=== PATIENT | female | born 1950 | race Caucasian/White ===

== ENCOUNTER → 2016-12-15 | Outpatient (CLI) | payer OTHER ==
--- NOTE | 2016-12-15 14:18 | US ---
EXAMINATION TYPE: US thyroid st tissue head/neck DATE OF EXAM: 12/15/2016 COMPARISON: NONE CLINICAL HISTORY: E04.1 Nontoxic single thyroid nodule. Lump pt felt 1 year GLAND SIZE: Right Lobe: 4.1 x 1.1 x 0.8 cm Overall Parenchyma: homogenous Left Lobe: 4.3 x 1.4 x 1.2 cm Overall Parenchyma: homogeneous Isthmus Thickness: 0.2 cm NODULES RIGH# of nodules measured on right: 1 1. 0.3 X 0.2 x 0.4 cm isoechoic mixed nodule at the upper pole with well-defined margins; . This n odule is wider than tall and shows intranodular vascularity. Prior size: no prior LEFT: # of nodules measured on left: 1 1. 2.5 X 1.3 x 0.8 cm isoechoic mixed nodule at the mid pole with well-defined margins. This nodul e is taller than wide and shows intranodular vascularity. Prior size: no prior ISTHMUS: # of nodules measured in the isthmus: 0 Bilateral neck scanned, no evidence of lymphadenopathy. submandibular area symmetrical Thyroid gland is normal in size and fairly homogeneous in echotexture. There is a dominant 2.5 cm violet ler greater than wide mixed solid and cystic nodule in left thyroid lobe. Towards end of the exam sca nning of bilateral submandibular region shows no suspicious solid or cystic mass. IMPRESSION: A dominant 2.5 cm mixed solid and cystic nodule is noted, consider ultrasound guided fine-needle aspi ration to rule out malignancy.
== END | disposition home or self-care (01) ==
LOC: RADUSWWP 13:41
PROVIDERS: ATTEND Family Medicine
DX: E04.1 Nontoxic single thyroid nodule (principal)
CPT/HCPCS: 76536

== ENCOUNTER 2017-01-16 11:46 | Day surgery (SDC) | payer OTHER ==
[2017-01-16 12:16] VITALS: BP 137/85; PULSE 76; RESP 20; TEMP 98.1
--- NOTE | 2017-01-16 14:29 | US ---
EXAMINATION TYPE: US FNA thyroid DATE OF EXAM: 01/16/2017 COMPARISON: Ultrasound 12/15/2016 HISTORY: Thyroid nodule, E04.1 Maximal barrier technique was utilized. Ultrasound using sterile technique. The skin overlying the no dule was localized with ultrasound and the overlying skin prepped and draped. Lidocaine used for loca l anesthesia. 5 passes with a 25-gauge needle were made into the nodule under ultrasound guidance. As pirate specimen submitted to cytology. Following the procedure hemostasis achieved. No immediate comp lication IMPRESSION: Status post ultrasound-guided fine-needle aspiration of thyroid nodule, pathology pending .
== END 2017-01-16 13:25 | disposition home or self-care (01) ==
LOC: RADPROMAIN 11:46
PROVIDERS: ATTEND Family Medicine
DX: E04.1 Nontoxic single thyroid nodule (principal)
CPT/HCPCS: 10022; 76942; 88173; 88305

== ENCOUNTER → 2017-08-15 | Outpatient (CLI) | payer MEDICARE ==
[2017-08-15 08:51] LABS: Blood Urea Nitrogen 19 mg/dL (7-17)
--- NOTE | 2017-08-15 10:08 | CT ---
EXAMINATION TYPE: CT soft tissue neck w con DATE OF EXAM: 08/15/2017 COMPARISON: NONE HISTORY: Lump under chin marked with BB on scan CT DLP: 245.5 mGycm CONTRAST: CT scan of the neck is performed with IV Contrast, patient injected with 100 mL of Omnipaque 300. Contrast enhanced CT of the neck was performed from the skull base through the lung apices. At the site of clinical concern underneath the chin to the left of midline is a lipoma measuring 2.7 x 2.5 x 1.4 cm. AIRWAY: The supraglottic, glottic, and subglottic portions of the airway appear patent and free of mass. SALIVARY GLANDS: The submandibular and parotid glands are free of mass or inflammatory process. THYROID GLAND: Complex cystic lesion left thyroid lobe measuring 1.2 x 0.64 cm. Consider ultrasound c orrelation. LYMPH NODES: No adenopathy seen greater than 1cm. LUNG APICES: Mild biapical scarring and mild emphysematous change. OTHER: Vascular structures are patent. No significant degenerative change of the cervical spine. N o abscess seen. IMPRESSION: 1. Lipoma at the site of clinical concern. 2. Complex cystic lesion left thyroid lobe. Consider ultrasound correlation.
== END | disposition home or self-care (01) ==
LOC: RADCTMAIN 08:07
PROVIDERS: ATTEND Family Medicine
DX: E04.1 Nontoxic single thyroid nodule (principal); M79.9 Soft tissue disorder, unspecified
CPT/HCPCS: 82565; 84520; 70491; 36415; Q9967

== ENCOUNTER 2017-09-03 21:33 | Emergency (ER) | payer MEDICARE ==
[2017-09-03 21:40] VITALS: BP 164/85; PULSE 85; RESP 18; TEMP 96.2
--- NOTE | 2017-09-03 22:23 | ED ---
General Adult HPI - General Chief complaint: Skin/Abscess/Foreign Body Stated complaint: FALL,FACIAL INJURIES Time Seen by Provider: 09/03/17 22:03 Source: patient Mode of arrival: ambulatory Limitations: no limitations - History of Present Illness Initial comments: 67-year-old female patient presents to the emergency department today for evaluation after falling and striking her face on the cement. Patient states she was assisting her mother out the car when her mother began to fall, states that her arms were linked and she was unable to put her hands out to break her fall. States that she does have a headache, multiple facial abrasions. States she did have epistaxis initially but that has resolved. She is reporting some mild neck pain. She denies any loss of consciousness, nausea, vomiting, dizziness, or weakness. She denies any blurred or double vision. She denies any back pain or other injuries. Patient denies any chest pain, shortness of breath, abdominal pain, or difficulties with bowel movements or urination. She is unsure when her last tetanus immunization was given. - Related Data Home Medications Medication Instructions Recorded Confirmed Aspirin 81 mg PO DAILY 08/24/14 01/16/17 Atorvastatin [Lipitor] 20 mg PO HS 08/24/14 01/16/17 Multivitamin/Iron/Folic Acid 1 each PO DAILY 08/24/14 01/16/17 [Centrum Complete Multivit Tab] Previous Rx's Medication Instructions Recorded Acetaminophen-Codeine 300-30mg 1 tab PO Q6H PRN #15 tablet 09/03/17 [Tylenol #3] Allergies Allergy/AdvReac Type Severity Reaction Status Date / Time Sulfa (Sulfonamide Allergy Rash/Hives Verified 09/03/17 21:40 Antibiotics) Review of Systems ROS Statement: Those systems with pertinent positive or pertinent negative responses have been documented in the HPI. ROS Other: All systems not noted in ROS Statement are negative. Past Medical History Past Medical History: Hyperlipidemia Additional Past Medical History / Comment(s): kidney stones History of Any Multi-Drug Resistant Organisms: None Reported Past Surgical History: Section Additional Past Surgical History / Comment(s): mesh sling Additional Past Anesthesia/Blood Transfusion Reaction / Comment(s): vomiting Past Psychological History: No Psychological Hx Reported Smoking Status: Former smoker Past Alcohol Use History: Rare Past Drug Use History: None Reported General Exam Limitations: no limitations General appearance: alert, in no apparent distress, other (Physical well- developed, well-nourished adult female patient in no acute distress. Vital signs upon presentation are temperature 96.2F, pulse 85, respirations 18, blood pressure 164/85, pulse ox 98% on room air.) Head exam: Present: other (Abrasions to her forehead) Eye exam: Present: normal appearance, PERRL, EOMI. Absent: scleral icterus, conjunctival injection, periorbital swelling, periorbital tenderness ENT exam: Present: normal exam, normal oropharynx, mucous membranes moist, other (There is nasal bridge tenderness, right maxillary tenderness. There is evidence of upper and lower lip injury, small lacerations. Dentition is intact with no loose or broken teeth.) Neck exam: Present: normal inspection, full ROM, other (Nontender, no step-off, no deformity to firm midline palpation of the posterior cervical spine. Full range of motion without pain or limitation.). Absent: tenderness, meningismus, lymphadenopathy Respiratory exam: Present: normal lung sounds bilaterally. Absent: respiratory distress, wheezes, rales, rhonchi, stridor Cardiovascular Exam: Present: regular rate, normal rhythm, normal heart sounds. Absent: systolic murmur, diastolic murmur, rubs, gallop, clicks GI/Abdominal exam: Present: soft, normal bowel sounds. Absent: distended, tenderness, guarding, rebound, rigid Extremities exam: Present: full ROM Back exam: Absent: vertebral tenderness Neurological exam: Present: alert, oriented X3, CN II-XII intact Psychiatric exam: Present: normal affect, normal mood Skin exam: Present: warm, dry, intact, normal color. Absent: rash Expanded 1 - 1. Right forehead superficial abrasion. 2. Right maxillary superficial abrasion. 3. 0.5 cm laceration to the nasal bridge with surrounding abrasion. 4. Abrasion noted to the right upper lip Course Vital Signs 09/03/17 21:36 Temperature 96.2 F L Pulse Rate 85 Respiratory 18 Rate Blood Pressure 164/85 O2 Sat by Pulse 98 Oximetry Medical Decision Making - Medical Decision Making 67-year-old female patient presented to the emergency department today for evaluation after experiencing a fall with facial injury. Physical examination did reveal multiple abrasions to the face and a 0.5 cm laceration to the nasal bridge. CT of the brain, C-spine, and facial bones was performed and showed a probable left nasal bone fracture. This is nondisplaced. There is no other acute abnormalities. Wound care was performed. I did discuss findings with the patient. Tetanus was updated. She'll be discharged home at, 3 for pain control. She is instructed to follow up with clinical researcher for further evaluation. Return parameters discussed in detail. She is instructed to follow-up with her primary care physician for recheck in 1-2 days per she is instructed to return here immediately for any new, worsening, or concerning symptoms. She verbalizes understanding and agrees with this plan. - Radiology Data Radiology results: report reviewed, image reviewed CT of the head and cervical spine are performed without contrast. Report was reviewed in its entirety. Impression by Dr. Langford shows negative computed tomography scan of the brain. Spondylosis at C5 to 6. No fracture. Pulmonary emphysema with bilateral apical pleural and pulmonary scarring. CT of the facial bones was performed without contrast. Report was reviewed in its entirety. Impression shows minimal left maxillary sinusitis. There is probably a left-sided nasal bone fracture. Disposition Clinical Impression: Facial abrasion, Nasal bone fracture, Head injury Disposition: HOME SELF-CARE Condition: Good Instructions: Nasal Fracture (ED), Head Injury (ED), Abrasion (ED) Additional Instructions: Take Tylenol and Motrin for pain control. Follow-up with ENT specialist for further evaluation of the nasal fracture. Keep wounds clean and dry. Return here immediately for any new, worsening, or concerning symptoms. Prescriptions: Acetaminophen-Codeine 300-30mg [Tylenol #3] 1 tab PO Q6H PRN #15 tablet PRN Reason: Pain Referrals: Paulo Pineda MD [Primary Care Provider] - 1-2 days Wicho Krishna MD [STAFF PHYSICIAN] - 1-2 days Time of Disposition: 22:54
--- NOTE | 2017-09-03 22:42 | CT ---
EXAMINATION TYPE: CT brain arya lew DATE OF EXAM: 09/03/2017 COMPARISON: NONE HISTORY: Fall. Headache. Neck pain. CT DLP: 1306.5 mGycm Automated exposure control for dose reduction was used. TECHNIQUE: CT scan of the head and cervical spine are performed without contrast. FINDINGS: Ventricles of normal size. There is no mass effect nor midline shift. There is no sign of intracranial hemorrhage. The calvarium is intact. The cervical vertebra have normal alignment. There is slight narrowing at C5-6 disc space. The other disc spaces are normal. Facet joints are intact. Skull base is intact. There is no evidence of a frac ture. There is some pleural thickening at the lung apices. IMPRESSION: Negative CT scan of the brain. Spondylosis at C5-6. No fracture. Pulmonary emphysema and bilateral apical pleural and pulmonary scarring.
--- NOTE | 2017-09-03 22:45 | CT ---
EXAMINATION TYPE: CT facial bones wo con DATE OF EXAM: 09/03/2017 COMPARISON: NONE HISTORY: Fall. CT DLP: 776.5 mGycm Automated exposure control for dose reduction was used. TECHNIQUE: CT scan of the sinuses is performed without contrast, axial images are obtained, coronal r eformatted images are also reviewed. FINDINGS: Orbital margins are intact. Maxilla is intact. There is fairly normal aeration of the paran leana sinuses. There is mild mucosal thickening at the left maxillary sinus. There is patency of the o stiomeatal complex. There is no evidence of blowout fracture. There appears to be nondisplaced fractu re of the left side of the nasal bone. Zygomatic arches appear normal. The mandibular ring appears in tact. Temporomandibular joints appear normal. There is no evidence of orbital mass. IMPRESSION: Minimal left maxillary sinusitis. There is probably a left-sided nasal bone fracture.
[2017-09-03] MEDS ORDERED: ACET/COD 300 MG/30 MG STARTER PACK 6 TAB BTL PO STA (22:57)
[2017-09-03] MEDS ORDERED: DIPH,PERTUS(ACELL)TETVAC-LF 0.5 ML VIAL IM ONE (23:12)
== END 2017-09-03 23:50 | disposition home or self-care (01) ==
LOC: EC 21:33
DX: S02.2XXA Fracture of nasal bones, initial encounter for closed fracture (principal); S01.511A Laceration without foreign body of lip, initial encounter; E78.5 Hyperlipidemia, unspecified; Z87.891 Personal history of nicotine dependence; Z79.82 Long term (current) use of aspirin; Z79.899 Other long term (current) drug therapy; Z88.2 Allergy status to sulfonamides; Z23 Encounter for immunization; W19.XXXA Unspecified fall, initial encounter; Y92.093 Driveway of other non-institutional residence as the place of occurrence of the external cause
CPT/HCPCS: 70450; 70486; 72125; 90471; 90715; 99283

== ENCOUNTER 2018-05-22 14:43 | Observation (INO) | payer MEDICARE ==
[2018-05-22 15:27] LABS: Basophils # (A) 0.1 k/uL (0-0.2); Basophils % (A) 1 %; Eosinophils # (A) 0.3 k/uL (0-0.7); Eosinophils % (A) 4 %; HCT 42.7 % (34.0-46.0); HGB 14.1 gm/dL (11.4-16.0); Lymphocytes # (A) 2.1 k/uL (1.0-4.8); Lymphocytes % (A) 25 %; MCH 28.2 pg (25.0-35.0); MCV 85.3 fL (80.0-100.0); Mean Platelet Volume 6.3; Monocytes # (A) 0.6 k/uL (0-1.0); Monocytes % (A) 8 %; Neutrophils % (A) 60 %; Platelet Count 370 k/uL (150-450); RDW 13.3 % (11.5-15.5); WBC 8.4 k/uL (3.8-10.6)
[2018-05-22 15:36] LABS: INR 0.9 (<1.2); Partial Thromboplastin Time 23.7 sec (22.0-30.0)
[2018-05-22 15:37] LABS: ALT 31 U/L (9-52); AST 21 U/L (14-36); Alkaline Phosphatase 66 U/L (38-126); Anion Gap 9 mmol/L; Blood Urea Nitrogen 16 mg/dL (7-17); Calcium 9.8 mg/dL (8.4-10.2); Carbon Dioxide 26 mmol/L (22-30); Chloride 106 mmol/L (98-107); Glucose 78 mg/dL (74-99); Magnesium 2.1 mg/dL (1.6-2.3); Potassium 4.2 mmol/L (3.5-5.1); Sodium 141 mmol/L (137-145); Total Bilirubin 0.3 mg/dL (0.2-1.3); Total Protein 6.9 g/dL (6.3-8.2)
[2018-05-22 15:38] LABS: Creatine Kinase 73 U/L (30-135)
--- NOTE | 2018-05-22 15:52 | XR ---
EXAMINATION TYPE: XR chest 2V DATE OF EXAM: 05/22/2018 COMPARISON: NONE TECHNIQUE: PA and lateral views submitted. HISTORY: Cough FINDINGS: Hyperinflation suggests COPD. Coarsened interstitium suggests chronic interstitial lung disease and t here is right perihilar infiltrate or possibly neoplasm. Biapical pleural thickening. Curvature the s pine with atherosclerotic changes aorta. Degenerative changes seen. Hyperinflation noted. IMPRESSION: 1. COPD with right perihilar pneumonia or neoplasm. Recommend follow-up CT scan chest.
[2018-05-22 15:53] LABS: Troponin I <0.012 ng/mL (0.000-0.034)
[2018-05-22] MEDS ORDERED: RX INFO: IV CONTRAST WAS GIVEN 1 EACH MISC MISCELLANE PRN (15:56)
--- NOTE | 2018-05-22 17:21 | ED ---
General Adult HPI - General Chief complaint: Chest Pain Stated complaint: Chest Pain Time Seen by Provider: 05/22/18 14:45 Source: patient, EMS, RN notes reviewed, old records reviewed Mode of arrival: EMS Limitations: no limitations - History of Present Illness Initial comments: 68-year-old female sent from primary care office for evaluation of possible EKG changes. Patient states she presented to the office with several month history of cough. Cough is dry nonproductive. No fever or chills. Patient denies any chest pain. Denies dyspnea. She has remote history of tobacco use but is not currently smoking. She has history of hypercholesterolemia, she is on statin and aspirin. No history of CAD. Patient denies bowel pain nausea vomiting. She does report recent unintentional weight loss. Patient has no other complaints other than mild cough. - Related Data Home Medications Medication Instructions Recorded Confirmed Aspirin 81 mg PO HS 08/24/14 05/22/18 Atorvastatin [Lipitor] 20 mg PO HS 08/24/14 05/22/18 Cholecalciferol [Vitamin D3] 1,000 unit PO DAILY 05/22/18 05/22/18 Collegen Plus C 1 tab PO DAILY 05/22/18 05/22/18 Lysine [l-Lysine] 500 mg PO DAILY 05/22/18 05/22/18 Vitamin B Complex 1 cap PO DAILY 05/22/18 05/22/18 Allergies Allergy/AdvReac Type Severity Reaction Status Date / Time Sulfa (Sulfonamide Allergy Rash/Hives Verified 05/22/18 15:17 Antibiotics) Review of Systems ROS Statement: Those systems with pertinent positive or pertinent negative responses have been documented in the HPI. ROS Other: All systems not noted in ROS Statement are negative. Past Medical History Past Medical History: Hyperlipidemia Additional Past Medical History / Comment(s): kidney stones History of Any Multi-Drug Resistant Organisms: None Reported Past Surgical History: Breast Surgery, Section, Tonsillectomy Additional Past Surgical History / Comment(s): mesh sling Additional Past Anesthesia/Blood Transfusion Reaction / Comment(s): vomiting Past Psychological History: No Psychological Hx Reported Smoking Status: Former smoker Past Alcohol Use History: Rare Past Drug Use History: None Reported General Exam Limitations: no limitations General appearance: alert, in no apparent distress Head exam: Present: atraumatic, normocephalic Eye exam: Present: normal appearance, PERRL ENT exam: Present: normal exam Neck exam: Present: normal inspection. Absent: tenderness, meningismus Respiratory exam: Present: normal lung sounds bilaterally. Absent: respiratory distress, wheezes Cardiovascular Exam: Present: regular rate, normal rhythm GI/Abdominal exam: Present: soft. Absent: distended, tenderness Extremities exam: Present: normal inspection, normal capillary refill. Absent: pedal edema Back exam: Present: normal inspection, full ROM. Absent: tenderness Neurological exam: Present: alert, oriented X3 Psychiatric exam: Present: normal affect, normal mood Skin exam: Present: warm, dry, intact. Absent: cyanosis, diaphoretic Course Vital Signs 05/22/18 05/22/18 05/22/18 14:53 15:00 15:30 Temperature 98.1 F Pulse Rate 80 78 80 Respiratory 17 17 18 Rate Blood Pressure 156/95 156/95 141/93 O2 Sat by Pulse 98 98 99 Oximetry 05/22/18 05/22/18 05/22/18 16:00 16:30 17:00 Temperature Pulse Rate 82 80 85 Respiratory 17 16 19 Rate Blood Pressure 122/79 124/87 112/75 O2 Sat by Pulse 98 97 100 Oximetry EKG Findings - EKG Comments: EKG Findings:: EKG: Normal sinus rhythm, rate of 77, ME interval 168, QRS duration 92, QTC 448, no ST segment elevation. Medical Decision Making - Medical Decision Making 68 yo female presenting for abnormal EKG. I do not see any acute EKG findings. Patient's complaint, for which she went to the primary care physician was chronic cough. Patient has normal CBC, normal CMP troponin and BNP are negative. Chest x-ray shows concern for perihilar pneumonia versus mass. CT is obtained, shows a right lower lobe mass with a second adjacent mass in the right lower lobe. Measuring 6 x 3 cm. These findings are discussed with the patient. Patient will be admitted for both pulmonology and oncology evaluation. - Lab Data Result diagrams: 05/22/18 15:05/22/18 15:09 Lab Results 05/22/18 05/22/18 05/22/18 Range/Units 15: 15: 15:09 WBC 8.4 (3.8-10.6) k/uL RBC 5.00 (3.80-5.40) m/uL Hgb 14.1 (11.4-16.0) gm/dL Hct 42.7 (34.0-46.0) % MCV 85.3 (80.0-100.0) fL MCH 28.2 (25.0-35.0) pg MCHC 33.0 (31.0-37.0) g/dL RDW 13.3 (11.5-15.5) % Plt Count 370 (150-450) k/uL Neutrophils % 60 % Lymphocytes % 25 % Monocytes % 8 % Eosinophils % 4 % Basophils % 1 % Neutrophils # 5.0 (1.3-7.7) k/uL Lymphocytes # 2.1 (1.0-4.8) k/uL Monocytes # 0.6 (0-1.0) k/uL Eosinophils # 0.3 (0-0.7) k/uL Basophils # 0.1 (0-0.2) k/uL PT (9.0-12.0) sec INR (<1.2) APTT (22.0-30.0) sec Sodium 141 (137-145) mmol/L Potassium 4.2 (3.5-5.1) mmol/L Chloride 106 (98-107) mmol/L Carbon Dioxide 26 (22-30) mmol/L Anion Gap 9 mmol/L BUN 16 (7-17) mg/dL Creatinine 0.61 (0.52-1.04) mg/dL Est GFR (CKD-EPI)AfAm >90 (>60 ml/min/1.73 sqM) Est GFR (CKD-EPI)NonAf >90 (>60 ml/min/1.73 sqM) Glucose 78 (74-99) mg/dL Calcium 9.8 (8.4-10.2) mg/dL Magnesium 2.1 (1.6-2.3) mg/dL Total Bilirubin 0.3 (0.2-1.3) mg/dL AST 21 (14-36) U/L ALT 31 (9-52) U/L Alkaline Phosphatase 66 (38-126) U/L Total Creatine Kinase 73 (30-135) U/L CK-MB (CK-2) 1.0 (0.0-2.4) ng/mL CK-MB (CK-2) Rel Index 1.4 Troponin I <0.012 (0.000-0.034) ng/mL NT-Pro-B Natriuret Pep pg/mL Total Protein 6.9 (6.3-8.2) g/dL Albumin 4.0 (3.5-5.0) g/dL 05/22/18 05/22/18 Range/Units 15:09 15:09 WBC (3.8-10.6) k/uL RBC (3.80-5.40) m/uL Hgb (11.4-16.0) gm/dL Hct (34.0-46.0) % MCV (80.0-100.0) fL MCH (25.0-35.0) pg MCHC (31.0-37.0) g/dL RDW (11.5-15.5) % Plt Count (150-450) k/uL Neutrophils % % Lymphocytes % % Monocytes % % Eosinophils % % Basophils % % Neutrophils # (1.3-7.7) k/uL Lymphocytes # (1.0-4.8) k/uL Monocytes # (0-1.0) k/uL Eosinophils # (0-0.7) k/uL Basophils # (0-0.2) k/uL PT 10.0 (9.0-12.0) sec INR 0.9 (<1.2) APTT 23.7 (22.0-30.0) sec Sodium (137-145) mmol/L Potassium (3.5-5.1) mmol/L Chloride (98-107) mmol/L Carbon Dioxide (22-30) mmol/L Anion Gap mmol/L BUN (7-17) mg/dL Creatinine (0.52-1.04) mg/dL Est GFR (CKD-EPI)AfAm (>60 ml/min/1.73 sqM) Est GFR (CKD-EPI)NonAf (>60 ml/min/1.73 sqM) Glucose (74-99) mg/dL Calcium (8.4-10.2) mg/dL Magnesium (1.6-2.3) mg/dL Total Bilirubin (0.2-1.3) mg/dL AST (14-36) U/L ALT (9-52) U/L Alkaline Phosphatase (38-126) U/L Total Creatine Kinase (30-135) U/L CK-MB (CK-2) (0.0-2.4) ng/mL CK-MB (CK-2) Rel Index Troponin I (0.000-0.034) ng/mL NT-Pro-B Natriuret Pep 54 pg/mL Total Protein (6.3-8.2) g/dL Albumin (3.5-5.0) g/dL Disposition Clinical Impression: Lung mass Disposition: ADMITTED IP TO THIS HOSP Condition: Stable Is patient prescribed a controlled substance at d/c from ED?: No Referrals: Paulo Pineda MD [Primary Care Provider] - 1-2 days Time of Disposition: 18:24
--- NOTE | 2018-05-22 17:58 | CT ---
EXAMINATION TYPE: CT chest w con DATE OF EXAM: 05/22/2018 COMPARISON: 09/03/2017 CT HISTORY: chest pain/cough/irregular heartbeat CT DLP: 135.8 mGycm Automated exposure control for dose reduction was used. CONTRAST: CT scan of the chest is performed with IV Contrast, patient injected with 92 mL of Isovue 3 00. FINDINGS: AIRWAYS: In the right lower lobe the airways show multifocal caliber narrowing. LUNGS: There is an ill-defined lobular RLL bronchogenic masslike soft tissue density lesion in the lo wermost posterior RLL, measuring approximately 6 cm craniocaudal by 4 cm AP by 3 cm transverse. There is a second ill-defined masslike bronchogenic RLL lesion measuring 5 cm diameter, with 50% cavitatio n, located immediately cephalad and anterior to the aforementioned masslike finding. MEDIASTINUM: There are no acute aortic or pulmonary arterial findings. Cardiac size is top normal, pe ricardial spaces negative. Prominent left and right coronary calcifications noted. There is confluent right hilar, subcarinal, and paratracheal moderate adenopathy. SKELETAL: No focal lesions. OTHER: The visualized subdiaphragmatic structures are unremarkable. The previously seen hypodense 12 x 6 mm lower left thyroid nodule is redemonstrated, with similar carol earance. IMPRESSION: 1) TWO LARGE RIGHT LOWER LOBE BRONCHOGENIC LESIONS, WITH ASSOCIATED PROMINENT RIGHT HILAR AND MEDIAST INAL ADENOPATHY. 2) CORONARY CALCIFICATIONS.
[2018-05-22] MEDS ORDERED: NALOXONE 0.4 MG/ML 1 ML VIAL IV PRN (18:19)
[2018-05-22] MEDS ORDERED: ACETAMINOPHEN TAB 325 MG TAB PO PRN (18:19)
[2018-05-22] MEDS ORDERED: ONDANSETRON 4 MG/2 ML VIAL IVP PRN (18:19)
[2018-05-23] MEDS: LORazepam 0.5 MG TAB PO PRN ×2 (00:22→21:16)
--- NOTE | 2018-05-23 09:43 | P.CONS ---
History of Present Illness - Reason for Consult Consult date: 05/23/18 Lung masses, adenopathy - History of Present Illness The patient is a 68-year-old white female, with overall well controlled medical problems. The patient states that she developed a cough which is mostly nonproductive, in late 03/22. She was treated with outpatient antibiotics with only transient improvement. She also started noting a pain just to the right of her lower sternum, that was exacerbated by the cough. This was associated with some difficulty in swallowing, and decrease in appetite. The patient states that she lost about 8 pounds since 03/22. Due to persistence, and progression of the symptoms, she came into the emergency room. Chest x-ray showed a right lung mass, leading to a computed tomography scan of the chest. This confirmed the presence of a 6 x 5 cm mass in the posterior right lower lobe, as well as a 5 cm mass which is partially necrotic, just anterior and cephalad to that. There also appeared to be prominent right hilar , right paratracheal and subcarinal adenopathy which seem to be somewhat confluent. She was therefore admitted for further evaluation, and consult placed. She denied any prior history of malignancy. She states that she used to smoke about 2 packs a day for 17 years but quit 33 years ago. She is not sure if she may have had some asbestos exposure in her 20s and 30s. She does get regular mammograms, and was due for her routine one this year. Review of Systems Constitutional: Reports weight loss Eyes: denies blurred vision, denies pain Ears: deny: decreased hearing, ear discharge, earache, tinnitus Ears, nose, mouth and throat: Denies headache, Denies sore throat Cardiovascular: Reports decreased exercise tolerance Respiratory: Reports cough Gastrointestinal: Reports as per HPI, Denies abdominal pain, Denies diarrhea, Denies nausea, Denies vomiting Genitourinary: Denies dysuria, Denies hematuria Menstruation: Reports postmenopausal Musculoskeletal: Denies myalgias Integumentary: Denies pruritus, Denies rash Neurological: Denies numbness, Denies weakness Psychiatric: Denies anxiety, Denies depression Endocrine: Reports weight change Hematologic/Lymphatic: Reports as per HPI Past Medical History Past Medical History: Hyperlipidemia, Osteoarthritis (OA), Pneumonia Additional Past Medical History / Comment(s): 2past kidney stones-passed them on own. occ constipation-last bm 05-22-18 , past fall-nasal fx,rt thumb fx- casted. "told years ago she had a prolapsed heart valve but never heard anything about it since", hiatal hernia,rt lower dental bridge."close to being boarderline dm" History of Any Multi-Drug Resistant Organisms: None Reported Past Surgical History: Bladder Surgery, Breast Surgery, Section, Tonsillectomy, Tubal Ligation Additional Past Surgical History / Comment(s): bladder sx-mesh sling, egd/ colonoscopy, thyroid bx-neg, breast augmentation, x2,cervical cerclage x2, fatty tumor removed lt thigh Past Anesthesia/Blood Transfusion Reactions: Postoperative Nausea & Vomiting ( PONV) Additional Past Anesthesia/Blood Transfusion Reaction / Comm: past blood transfusion-no known reaction Smoking Status: Former smoker - Past Family History Mother Family Medical History: Coronary Artery Disease (CAD), Myocardial Infarction (PR ) Additional Family Medical History / Comment(s): boarderline dm, cardaic stents Father Family Medical History: Coronary Artery Disease (CAD), Diabetes Mellitus, Myocardial Infarction (PR) Additional Family Medical History / Comment(s): cardiac stents Medications and Allergies Home Medications Medication Instructions Recorded Confirmed Type Aspirin 81 mg PO HS 08/24/14 05/22/18 History Atorvastatin [Lipitor] 20 mg PO HS 08/24/14 05/22/18 History Cholecalciferol [Vitamin D3] 1,000 unit PO DAILY 05/22/18 05/22/18 History Collegen Plus C 1 tab PO DAILY 05/22/18 05/22/18 History Lysine [l-Lysine] 500 mg PO DAILY 05/22/18 05/22/18 History Vitamin B Complex 1 cap PO DAILY 05/22/18 05/22/18 History Allergies Allergy/AdvReac Type Severity Reaction Status Date / Time Sulfa (Sulfonamide Allergy Rash/Hives Verified 05/22/18 15:17 Antibiotics) Physical Exam Vitals: Vital Signs Temp Pulse Pulse Pulse Resp BP BP 05/23/18 06:02 98 F 75 16 106/67 05/22/18 23:56 80 18 05/22/18 21:10 98 F 83 16 127/69 05/22/18 20:10 98.0 F 05/22/18 20:00 130/87 12/18/18 19:30 138/80 05/22/18 19:00 82 18 135/83 18 18:30 83 17 113/78 05/22/18 18:00 80 17 127/76 05/22/18 17:30 85 16 129/75 05/22/18 17:00 85 19 112/75 05/22/18 16:30 80 16 124/87 05/22/18 16:00 82 17 122/79 05/22/18 15:30 80 18 141/93 05/22/18 15:00 78 17 156/95 05/22/18 14:53 98.1 F 80 17 156/95 Pulse Ox 05/23/18 06:02 96 05/22/18 23:56 05/22/18 21:10 94 L 05/22/18 20:10 05/22/18 20:00 93 L 05/22/18 19:30 94 L 05/22/18 19:00 94 L 05/22/18 18:30 93 L 05/22/18 18:00 96 05/22/18 17:30 98 05/22/18 17:00 100 05/22/18 16:30 97 05/22/18 16:00 98 05/22/18 15:30 99 05/22/18 15:00 98 05/22/18 14:53 98 Intake and Output 05/22/18 05/23/18 05/23/18 22:59 06:59 14:59 Intake Total 160 Balance 160 Intake: Oral 160 Other: Voiding Method Toilet # Voids 2 Weight 42.093 kg - Constitutional General appearance: no acute distress - EENT Eyes: EOMI, PERRLA ENT: hearing grossly normal, normal oropharynx - Neck Neck: no lymphadenopathy Thyroid: bilateral: normal size - Respiratory Respiratory: bilateral: CTA - Cardiovascular Rhythm: regular Heart sounds: normal: S1, S2 - Gastrointestinal General gastrointestinal: normal bowel sounds, soft - Integumentary Integumentary: normal - Neurologic Neurologic: CNII-XII intact - Musculoskeletal Musculoskeletal: generalized weakness, strength equal bilaterally - Psychiatric Psychiatric: A&O x's 3, appropriate affect Results CBC & Chem 7: 05/22/18 15:09 05/22/18 15:09 Chest x-ray: report reviewed CT scan - chest: report reviewed Assessment and Plan (1) Lung mass Narrative/Plan: The imaging findings are highly suspicious for malignancy. The results of the CAT scan, and implications were discussed in detail with her. At this time a a lung primary seems most likely. Other etiologies are not ruled out. - The patient will need a tissue diagnosis. Pulmonary medicine has been consulted. We will defer to them as to whether bronchoscopy or CT-guided biopsy would be most appropriate. - MRI of the brain will be ordered for additional staging. - A computed tomography scan of the chest does not show any obvious metastatic disease in the other lung, or the upper abdomen. Therefore the plan would be to complete staging with a PET scan as an outpatient. Management of primary lung malignancy in general, according to her stage and type were discussed with the patient. She was advised that a definite plan can be formulated once tissue diagnosis and staging studies are finalized Current Visit: Yes Status: Acute Code(s): R91.8 - OTHER NONSPECIFIC ABNORMAL FINDING OF LUNG FIELD SNOMED Code(s): 458039256 Plan: Defer to the admitting service and other consultants for management of her other medical problems. Her baseline performance status is normal.
[2018-05-23 10:11] VITALS: BMI 17.5
[2018-05-23] MEDS ORDERED: NON-FORMULARY DRUG (Vitamin B Complex [Vitamin B Complex] 1 CAP) PO SCH (13:00)
[2018-05-23] MEDS: CHOLECALCIFEROL 1,000 UNIT TAB PO SCH (14:06)
--- NOTE | 2018-05-23 17:02 | MR ---
EXAMINATION TYPE: MR brain wo/w con DATE OF EXAM: 05/23/2018 COMPARISON: None HISTORY: Recent diagnosis lung ca, R/O mets TECHNIQUE: Multiplanar, multisequence images of the brain and brainstem is performed without and with IV contras t, utilizing 4.5 mL intravenous Gadavist . FINDINGS: On the FLAIR and T2 images there are scattered white matter high signal foci in both cerebral hemisph eres at the morrell-white matter junction. Total number is approximately 20. These measure up to 5 mm. T here is no mass effect nor midline shift. The ventricles of normal size. Brainstem is intact. Sella t urcica appears normal. Corpus callosum is intact. There is no evidence of a cortical infarct. I see n o pathologic enhancement. There is normal contrast opacification of the venous sinuses. IMPRESSION: Scattered subcortical white matter high signal foci likely related to chronic small vesse l ischemia. Otherwise negative exam. No evidence of metastatic disease.
[2018-05-23] MEDS: ENOXAPARIN 40 MG/0.4 ML SYRINGE SQ SCH (17:32)
[2018-05-23] MEDS: predniSONE 20 MG TAB PO SCH (17:32)
--- NOTE | 2018-05-23 17:48 | CONS ---
CONSULTATION REASON FOR CONSULTATION: This is a pulmonary critical care consultation for chest pain. HISTORY OF PRESENT ILLNESS: This is a very pleasant 68-year-old female who has a prior history of tobacco use, although he has not smoked for many years. She comes in because she was having chest pain. Her primary doctor was concerned and thought they saw some EKG changes and sent the patient to the emergency room for evaluation. Anyway, her EKG apparently was not abnormal and she was not having any cardiac disease, but rather she was found on chest x-ray and CT scan to have a mass in the chest. It is in the right lower lobe. In addition to the pain, she was having cough. The cough is mostly nonproductive. It does look that she likely has underlying lung cancer. It looks like the disease is endobronchial in nature that is likely why she is coughing. Again, not coughing up any phlegm or blood. The other thing that is important to noted is that her appetite has been poor and over the last 6 months she has lost about 20 pounds. She is a small woman to begin with. She does have a history of hyperlipidemia. She is on a statin for that. She has also recently given some aspirin because of the chest pain. She really does not take any other medication. She was told that she has possibly a borderline diabetes, but is not on any medication for that. She sees family doctor in [place]. As I mentioned, she did smoke heavily in the past, but has not smoked for many years. I got a look at the chest x-ray and a CT scan. I did tell her that it is likely she has lung cancer. We schedule her for bronchoscopy tomorrow. I am sure we are going to end up seeing endobronchial disease. PAST MEDICAL HISTORY: Is positive for kidney stones and hyperlipidemia. SURGICAL HISTORY: Includes breast surgery, , tonsillectomy. SOCIAL HISTORY: Positive for previous tobacco use. She drinks alcohol rarely. Family history is not noted. No illicit drug use. ALLERGIES: INCLUDE SULFA ANTIBIOTICS. HOME MEDICATIONS: Include aspirin, Lipitor, vitamin D3, collagen plus C, lysine and vitamin B complex. REVIEW OF SYSTEMS: CONSTITUTIONAL: Negative. NEUROLOGICAL: Negative. HEENT negative. CARDIOVASCULAR: Chest pain. PULMONARY: Nonproductive cough. GI/ negative. RHEUMATOLOGIC, HEMATOLOGIC, negative. ENDOCRINOLOGIC: Negative. DERMATOLOGIC: Negative. PHYSICAL EXAMINATION: Current vital signs are reviewed. Temperature is 98, heart rate 80, respiratory 16, blood pressure 106/67. Room-air saturation 96%. Appears in no acute distress. HEENT examination is grossly unremarkable. Mucous membranes are moist. No oral lesions. NECK: Supple. Full range of motion. No adenopathy or thyromegaly. Neck veins are flat. Cardiovascular examination reveals regular rhythm and rate. LUNGS: Some coarse rhonchi on the right. Breath sounds on the left are clear. No wheezes. No crackles. ABDOMEN: Soft. Bowel sounds are heard. Extremities are intact. No cyanosis, clubbing, or edema. Skin without rash. Neurologic examination is brief but nonfocal. LABS: Reviewed. CBC is completely normal. PT/INR and PTT all normal. Electrolytes and comprehensive metabolic profile all normal. The patient had an EKG that was normal. Chest x-ray shows either an infiltrate or mass in the right mid lung, right lower lobe area. CT scan was recommended. The CT scan done on May 22 shows 2 large right lower lobe bronchogenic lesions with associated prominent right hilar and mediastinal adenopathy. There is some coronary calcifications as well. This whole pattern is consistent with lung cancer given her cough or chest pain and her significant weight loss. ASSESSMENT: 1. Probable bronchogenic carcinoma. 2. History of hyperlipidemia. 3. Previous history of tobacco use. PLAN: The patient is scheduled for bronchoscopy, airway examination and biopsy. She likely has endobronchial disease. Additional recommendations and suggestions are forthcoming. Prognosis is guarded. I will see her in the outpatient setting after the procedure is done. She can certainly be discharged home. Oncology has been consulted. She will need an outpatient PET scan for staging as well as a CT scan of the brain. Additional recommendations and suggestions are forthcoming. MMODL / IJN: [id number] /
[2018-05-23] MEDS: IPRATROPIUM-ALBUTEROL 3 ML NEB INHALATION SCH ×2 (18:18→19:37)
--- NOTE | 2018-05-23 18:48 | HP ---
HISTORY AND PHYSICAL DATE OF ADMISSION: 05/22/2018 DATE OF SERVICE: 05/23/2018. PRESENTING COMPLAINT: Cough. HISTORY OF PRESENTING COMPLAINT: This is a very pleasant 68-year-old patient of Dr. Pineda. Chronic stable medical conditions include hyperlipidemia, osteoarthritis, kidney stones. The patient has since for at least 3 weeks has been having cough, has been to Dr. Pineda, was given steroids, Mucinex, not really with much more improvement. Decided to go back in again. They found some EKG changes and sent her down to rule out heart problems. The patient's appetite has been fair, but she has been losing weight. She used to weigh 105 pounds, down to 92 pounds. There is no hemoptysis. A chest x-ray in the ER did reveal possible lung masses. CT scan confirmed the same. The patient's daughter and other family members are present at the bedside. REVIEW OF SYSTEMS: CONSTITUTIONAL: Weight loss. HEENT none. RESPIRATORY as above including wheezing. CARDIOVASCULAR: None. GASTROINTESTINAL: None. GENITOURINARY: None. MUSCULOSKELETAL: Arthritic pain in joints. DERMATOLOGICAL, HEMATOLOGIC, LYMPHATIC: none. PSYCHIATRY none. NEUROLOGICAL none. PAST MEDICAL HISTORY: Hyperlipidemia, osteoarthritis, kidney stones. PAST SURGICAL HISTORY: Bladder surgery, breast surgery, , tonsillectomy, bladder surgery with mesh sling, thyroid biopsy negative, breast augmentation, , cervical cerclage, fatty tumor removed from left thigh. SOCIAL HISTORY: Patient's 13-year-old grandson lives with her. 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 Lives by herself. The patient smoked heavily for 15 years, stopped in 1985. FAMILY HISTORY: Coronary artery disease. HOME MEDICATIONS: 1. Vitamin B complex 1 capsule p.o. daily. 2. Lysine 500 mg p.o. daily. 3. Collagen plus C 1 tab p.o. daily. 4. Vitamin D3 1000 units p.o. daily. 5. Lipitor 20 mg q.h.s. 6. Aspirin 81 mg q.h.s. ALLERGIES: SULFA. PHYSICAL EXAMINATION: VITAL SIGNS: Vital signs on presentation, temperature 98.1, pulse 80, respiration 17, blood pressure 156/95, pulse ox 98% on room air. Repeat blood pressure 120/87. GENERAL APPEARANCE: Thin built, BMI 17.5, sitting up well groomed. EYES: Pupils equal. Conjunctivae normal. HEENT: External appearance of nose and ears normal. Oral cavity normal. NECK: JVD not raised. Mass not palpable. RESPIRATORY: Effort normal. LUNGS: Decreased breath sounds. Minimal wheezing. CARDIOVASCULAR: First and second sounds normal. No edema. ABDOMEN: Soft, nontender. Liver and spleen not palpable. LYMPHATICS: No lymph nodes palpable in the neck and axilla. PSYCHIATRY: Alert and oriented x3. Mood and affect is normal. NEUROLOGICAL: Pupils equal. Cranial nerves grossly intact. Power and sensation grossly intact. INVESTIGATIONS: White count 8.4, hemoglobin 14.1, potassium 4.2. Troponin negative. ProBNP 54. EKG tracing personally reviewed by me shows normal sinus rhythm. Checks x-ray film personally reviewed by me on the lateral view shows two shadows/lung masses. CT scan of the chest that showed 2 masses, 1 with possibly cavitating lesions with prominent lymph nodes. Brain MRI negative for masses. ASSESSMENT: 1. This is a patient who has been losing weight who is an ex-smoker presented with 2 lung lesions strongly suggestive of bronchogenic carcinoma along with adenopathy. 2. Chronic obstructive pulmonary disease in an ex-smoker. 3. Hyperlipidemia. 4. Primary osteoarthritis. PLAN: Patient is started on bronchodilators, oral steroids. Pulmonary was consulted. They will be doing a bronchoscopy with biopsy. Also preemptively oncology Dr. Tyler is consulted. Care was discussed with the patient and daughter at the bedside. I am hoping the patient will be able to be discharged tomorrow after her bronchoscopy and biopsy and then she can follow up with the results with the oncologist to determine further course of action. This was discussed with the patient and his daughter. Questions were answered. Copy to Dr. Pineda. MMHANNAHL / AZAMN: [id number] /
[2018-05-23] MEDS ORDERED: ASPIRIN 81 MG PO SCH (21:00)
[2018-05-23] MEDS ORDERED: ATORVASTATIN 20 MG TAB PO SCH (21:00)
[2018-05-24 05:13] VITALS: RESP 18
[2018-05-24] MEDS: IPRATROPIUM-ALBUTEROL 3 ML NEB INHALATION SCH ×3 (08:08→15:14)
[2018-05-24] MEDS: ENOXAPARIN 40 MG/0.4 ML SYRINGE SQ SCH (08:21)
[2018-05-24 12:21] VITALS: BP 116/56; TEMP 98.1
[2018-05-24] MEDS ORDERED: GLYCOPYRROLATE 0.2 MG/ML 2 ML VIAL ONE (13:04)
[2018-05-24] MEDS ORDERED: LIDOCAINE 1% INJ 10MG/ML (20 ML MDV) ONE (13:04)
[2018-05-24] MEDS ORDERED: MIDAZOLAM 2 MG/2 ML VIAL ONE (13:04)
[2018-05-24] MEDS ORDERED: PROPOFOL 10 MG/ML 20 ML VIAL IV ONE (13:04)
[2018-05-24] MEDS ORDERED: KETAMINE 10 MG/ML 20 ML VIAL ONE (13:04)
[2018-05-24] MEDS ORDERED: SODIUM CHLORIDE 0.9% 1,000 ML IV ONE (13:17)
--- NOTE | 2018-05-24 13:53 | P.PN ---
Subjective Progress Note Date: 05/24/18 Principal diagnosis: Right lung mass This is a very pleasant 68-year-old female patient with a history of kidney stones, hyperlipidemia, remote history of smoking. She presented here on 2017 with complaints of chest pain. She was seen by her PCP who thought she had EKG changes and she was evaluated in the emergency room. No acute coronary syndrome. Chest x-ray and CAT scan of the chest revealed a large right lower lobe lung mass. Suspicious for cancer. She was seen in consultation yesterday. The plan is for bronchoscopy with biopsies today. She is seen on the oncology unit. She is awake and alert in no acute distress. She is maintaining good O2 saturations in the mid 90s on room air. Worsening shortness of breath cough or congestion. No chest pain this morning. Objective - Vital Signs Vital signs: Vital Signs Temp 98.1 F 05/24/18 12:20 Pulse 106 H 05/24/18 12:20 Resp 18 05/24/18 05:00 BP 116/56 05/24/18 12:20 Pulse Ox 96 05/24/18 12:20 Intake & Output 05/23/18 05/24/18 05/24/18 18:59 06:59 18:59 Intake Total 360 240 200 Balance 360 240 200 Weight 42.093 kg Intake: IV 200 Oral 360 240 Other: Voiding Method Toilet Toilet # Voids 3 - Exam GENERAL EXAM: Alert, active, comfortable in no apparent distress. On room air. HEAD: Normocephalic. EYES: Normal reaction of pupils, equal size. NOSE: Clear with pink turbinates. THROAT: No erythema or exudates. NECK: No masses, no JVD. CHEST: No chest wall deformity. LUNGS: Equal air entry with no crackles, wheeze, rhonchi or dullness. CVS: S1 and S2 normal with no audible murmur, regular rhythm. ABDOMEN: No hepatosplenomegaly, normal bowel sounds, no guarding or rigidity. SPINE: No scoliosis or deformity SKIN: No rashes CENTRAL NERVOUS SYSTEM: No focal deficits, tone is normal in all 4 extremities. EXTREMITIES: There is no peripheral edema. No clubbing, no cyanosis. Peripheral pulses are intact. - Labs CBC & Chem 7: 05/22/18 15:09 05/22/18 15:09 Assessment and Plan Assessment: Pression: #1 Right lung mass suspicious for bronchogenic carcinoma. Bronchoscopy with biopsies performed today. #2 remote history of chronic tobacco dependence. #3 Hyperlipidemia. #4 History of nephrolithiasis. Plan: The patient was seen and evaluated by Dr. Ash. He did go ahead and perform a bronchoscopy with endobronchial biopsies, brushings and washings of the right lower lobe. If she is doing well within an hour or two she could be discharged home from our standpoint. She should follow-up in our office for results in 1- 2 weeks' time. She has already been seen by oncology. The plan will be for outpatient PET scan. MRI of the brain was negative for metastasis. I, the cosigning physician, performed a history & physical examination of the patient. Lungs sounds are clear. Maintaining good O2 saturations in the 90s on room air. I discussed the assessment and plan of care with my nurse practitioner, Mary Miles. I attest to the above note as dictated by her.
[2018-05-24 15:33] VITALS: PULSE 82
[2018-05-24] MEDS: CHOLECALCIFEROL 1,000 UNIT TAB PO SCH (15:35)
[2018-05-24] MEDS: predniSONE 20 MG TAB PO SCH (15:35)
[2018-05-24 17:30] LABS: Appearance,BF Bloody; Color,BF Red; Nucleated Cells, Body Fluid 300 /uL; RBC, Body Fluid 88700 /uL
[2018-05-24 17:33] LABS: Mononuclear WBC,Body Fluid 36 %; Polynuclear WBC,Body Fluid 62 %; Total Cells Counted,Body Fluid 100
--- NOTE | 2018-05-24 17:58 | P.PN ---
Subjective Progress Note Date: 05/24/18 Principal diagnosis: lung mass Bronchoscopy today Objective - Vital Signs Vital signs: Vital Signs Temp 98.1 F 05/24/18 12:20 Pulse 82 05/24/18 15:25 Resp 18 05/24/18 05:00 BP 116/56 05/24/18 12:20 Pulse Ox 96 05/24/18 12:20 Intake & Output 05/23/18 05/24/18 05/24/18 18:59 06:59 18:59 Intake Total 360 240 200 Balance 360 240 200 Weight 42.093 kg Intake: IV 200 Oral 360 240 Other: Voiding Method Toilet Toilet # Voids 3 2 - Exam - Constitutional General appearance: no acute distress - EENT Eyes: EOMI, PERRLA ENT: hearing grossly normal, normal oropharynx - Neck Neck: no lymphadenopathy Thyroid: bilateral: normal size - Respiratory Respiratory: bilateral: CTA - Cardiovascular Rhythm: regular Heart sounds: normal: S1, S2 - Gastrointestinal General gastrointestinal: normal bowel sounds, soft - Integumentary Integumentary: normal - Neurologic Neurologic: CNII-XII intact - Musculoskeletal Musculoskeletal: generalized weakness, strength equal bilaterally - Psychiatric Psychiatric: A&O x's 3, appropriate affect - Labs CBC & Chem 7: 05/22/18 15:09 05/22/18 15:09 Assessment and Plan Plan: Chest x-ray: report reviewed CT scan - chest: report reviewed Assessment and Plan (1) Lung mass - The imaging findings are highly suspicious for malignancy. - The results of the CAT scan, and implications were discussed in detail with her. At this time a a lung primary seems most likely. Other etiologies are not ruled out. - The patient status post Bronchoscopy today and will await tissue biopsy results for further recs. - Pulmonary medicine following - MRI of the brain completed and reviewed and no evidence of metastatic disease to brain - A computed tomography scan of the chest does not show any obvious metastatic disease in the other lung, or the upper abdomen. Therefore the plan would be to complete staging with a PET scan as an outpatient. Management of primary lung malignancy in general, according to her stage and type were discussed with the patient. She was advised that a definite plan can be formulated once tissue diagnosis and staging studies are finalized
--- NOTE | 2018-05-24 19:25 | PCN ---
PROCEDURE NOTE PROCEDURE PERFORMED: Bronchoscopy, endobronchial biopsies, brushes washes, BAL, therapeutic lavage, airway examination, most of the sampling or all sampling took place in the right lower lobe. PREOP DIAGNOSIS: Lung cancer. POSTOP DIAGNOSIS: Lung cancer. OPERATORS: Dr. Ash and Dr. Miles. ANESTHESIA: HEALTHCARE TECHNICIAN provided unconscious sedation general anesthesia. DESCRIPTION OF PROCEDURE: There was informed consent. There was universal timeout. The procedure took place in room #1. After the patient was adequately sedated and being fully monitored, the bronchoscope was inserted through the right nostril. It passed through the right nasopharynx into the oropharynx. The hypopharynx was identified and topicalized. The hypopharyngeal structures appeared normal. This including anterior commissure, true cords, false cords, arytenoids, piriform sinuses, right and left vallecula and epiglottis. After topicalization, bronchoscope was pushed through the glottic opening into the trachea. The trachea appeared normal. Trachea arpit was sharp. We next evaluated the left side. Left upper lobe proper and its 2 segments, the lingula and its 2 segments and the left lower lobe and its 4 segments were all normal. On the right side, the right upper lobe was trifurcated and normal. The bronchus intermedius started to appear abnormal as we took the bronchoscope down. It was clear to me that there was significant abnormalities particularly in the right lower lobe. It seemed to focus primarily on the medial segment of the right lower lobe and the segment going to the anterior lateral and posterior segments of the right lower lobe. The superior segment for all practical purposes appeared normal. Next, we focused on that area. We did brushes initially. That was done under direct visualization. Next, multiple endobronchial biopsies were performed in that area. Finally, washes were done in that area. The patient tolerated the procedure well. The bronchoscope was withdrawn and the patient will be recovered. I will talk to the family afterwards about the findings. MMODL / IJN: [id number] /
--- NOTE | 2018-05-30 11:51 | DS ---
DISCHARGE SUMMARY DATE OF ADMISSION: 05/22/2018 DATE OF DISCHARGE: 05/24/2018 FINAL DIAGNOSES: 1. Lung mass, adenopathy, asymptomatic. 2. Chronic obstructive pulmonary disease in an ex-smoker. 3. Primary osteoarthritis. HOSPITAL COURSE: This patient presented with shortness of breath, cough, not getting better. CT scan of the chest showed 2 large right lower lobe bronchogenic lesions with prominent hilar and mediastinal adenopathy. Patient did also have a brain MRI that did not show any evidence of metastatic disease. Patient did have a bronchoscopy with biopsy. The results of which were not available when patient was discharged. The results have just back now showing mixed endobronchial inflammation with atypical squamous metaplastic cells and pigmented histiocytes in the right lower lobe. The other two sites were negative. On examination,.temperature 98.1, pulse 106, blood pressure 106/56, pulse ox 96% on room air. LUNGS: Decreased breath sounds. Discussed the care with the family at the bedside. That results will be followed up by Dr. Ash and Dr. Tyler in the office. The results of above were not available when patient was discharged. Also discussed with Dr. Ash as steam pipe fitter of discharge. Discussion and discharge planning more than 35 minutes. DISCHARGE MEDICATIONS: 1. Aspirin 81 mg q.h.s. 2. Lipitor 20 mg q.h.s. 3. Vitamin D3 one thousand units p.o. daily. 4. Ventolin 1-2 puffs q.6 p.r.n. 5. Atrovent HFA 2 puffs q.i.d. 6. Prednisone taper. FOLLOWUP: Follow up with Dr. Tyler on 06/07/2018. Follow up with Dr. Ash in 1 week. Follow up with Dr. Khalif Pineda in [place] in one week. MMODL / IJN: [id number] /
== END 2018-05-24 17:15 | disposition home or self-care (01) ==
LOC: EC 14:43 → 3NMEDONC 18:19
PROVIDERS: ADMIT Hospitalist; ATTEND Hospitalist
DX: R91.8 Other nonspecific abnormal finding of lung field (principal); R05 Cough; R07.9 Chest pain, unspecified; R59.9 Enlarged lymph nodes, unspecified; R13.10 Dysphagia, unspecified; R63.4 Abnormal weight loss; E78.5 Hyperlipidemia, unspecified; R94.31 Abnormal electrocardiogram [ECG] [EKG]; M19.90 Unspecified osteoarthritis, unspecified site; Z87.442 Personal history of urinary calculi; Z87.891 Personal history of nicotine dependence; Z82.49 Family history of ischemic heart disease and other diseases of the circulatory system; Z88.2 Allergy status to sulfonamides; J44.9 Chronic obstructive pulmonary disease, unspecified; M19.91 Primary osteoarthritis, unspecified site; Z87.01 Personal history of pneumonia (recurrent); Z83.3 Family history of diabetes mellitus; Z79.82 Long term (current) use of aspirin; Z79.899 Other long term (current) drug therapy
CPT/HCPCS: 96372; 99285; 36415; 94640 ×3; 94760; 93005; 87798 ×3; 87496; 87498; 87529 ×2; 88104; 88108; 88305; 83880; 80053; 89050; 82550; 82553; 83735; 84484; 85025; 85610; 85730; 88342; 87252; 87502; 87634; 88341; 87070; 87205; 87116; 87102; 87206; 71046; 71260; 70553; 31625; 31623; 31624; G0378 ×3; J2250; J2001; J1650; J2704; J7512 ×2; A9585; Q9967

== ENCOUNTER → 2018-06-02 | Outpatient (CLI) | payer MEDICARE ==
--- NOTE | 2018-06-03 11:12 | PE ---
EXAMINATION TYPE: PET CT fusion skull to thigh DATE OF EXAM: 06/02/2018 COMPARISON: CT chest 05/22/2018 Prior PET/CT: None HISTORY: Lung cancer TECHNIQUE: Following the intravenous administration of 10.8 by mCi of F-18 FDG, whole body images ar e performed from the skull base to the midthigh. Images are reviewed on the computer in the coronal, axial, and sagittal planes. Reconstructed rotating images are created on independent workstation an d reviewed on the computer. A localization and attenuation correction CT is performed in conjunctio n with the PET scan. DLP: 148.62 mGycm SCAN: Initial Blood glucose: 92 mg/dL Average Mediastinum SUV: 1.2 Average Liver SUV: 1.54 FINDINGS: NECK: No abnormal uptake THORAX: There are multiple areas of abnormal uptake at the thoracic inlet, mediastinal and right lung foci of radiotracer accumulation: There is focal radiotracer accumulation within the left supraclavicular lymph node. PET image 51. SUV value 2.72. There is a right supraclavicular focus of radiotracer accumulation, PET image 53, SUV va lue of 3.19. There is an additional focus of radiotracer accumulation in the superior mediastinum adj acent to the trachea, PET image 56. SUV value 2.32. There is a focus of radiotracer accumulation at the aortopulmonic window suspicious for lymph node wi th an SUV value of 3.71. Pretracheal adenopathy has elevated SUV value of 4.74. Subcarinal lymph node SUV value of 4.83. Right peribronchial node SUV value 5.09. There is focal radiotracer accumulation along the pleural margin at the right costovertebral junction . PET image 82, SUV value 3.83. There is linear arranged nodularity extending from the right infrahilar region towards the posterior lateral pleural margin with multiple areas of focal radiotracer accumulation. This is well visualized on PET image 87 with SUV values in the range of 3.3, 2.6, and 2.54. This corresponds to the masslike area CT exam. There is a focus of radiotracer accumulation within the inferior aspect of the pulmonary mass on the right which has an SUV value of 3.67. This extends to the pleural margin. Along the inferior aspect t here is a focus of radiotracer accumulation for reference, image 109, SUV value of 3.4. ABDOMEN: Within the proximal abdomen in the prevertebral space, PET image 129, there is a focus of ra diotracer accumulation measuring 3.03. This may be a periaortic lymph node. PELVIS: No abnormal uptake. OSSEOUS STRUCTURES: No definite abnormal uptake within the osseous structures. LOCALIZATION CT: Supraclavicular adenopathy is not as well-visualized on the localization CT. Without contrast, there appears poor visualization of the mediastinal adenopathy. The soft tissue mass diste nding into the right lower lobe is well visualized. There appears to be some cavitation within the flynn perior segment right lower lobe portion of the mass. Adjacent within the soft tissues at this level i s located near areas of focal radiotracer accumulation on the PET portion of the study. Abnormality a djacent to the abdominal aorta to account for the abdominal findings is not clearly evident on this s tudy. Lymph node is suspected. COMPARISON: Right lower lobe lung mass extending to the right infrahilar region appears stable over t he short interval comparison CT study. IMPRESSION: 1. Abnormal increased uptake within the right infrahilar extension into the right lower lobe mass com patible with neoplasm. 2. Multiple focal areas of radiotracer accumulation within the mediastinum and bilateral supraclavicu lar regions discussed above suspicious for a metastatic disease. 3. There is a focal radiotracer accumulation anterior to vertebral body which appears to lie medial t o the aorta. This area is suspicious for solitary metastasis below the diaphragm. The suspected lymph node is not well delineated on the current examination.
== END | disposition home or self-care (01) ==
LOC: RADPETMAIN 14:05
PROVIDERS: ATTEND Internal Medicine Critical Care Medicine
DX: C34.31 Malignant neoplasm of lower lobe, right bronchus or lung (principal); R91.8 Other nonspecific abnormal finding of lung field
CPT/HCPCS: 78815; A9552

== ENCOUNTER 2018-06-15 08:28 | Day surgery (SDC) | payer MEDICARE ==
[2018-06-12 15:26] VITALS: BMI 17.2
[~2018-06-15 08:28] MED LIST: ATROPINE SULFATE 0.4 MG/ML 1 ML VIAL IM ONE; DEXAMETHASONE SOD PHOSPHATE 10 MG/ML 1 ML VIAL IV ONE; LACTATED RINGERS 1,000 ML IV SCH; LIDOCAINE 1% 20 ML VIAL (10MG/ML) FOR IV START INTRADERMA PRN; LIDOCAINE VISCOUS 2% 15 ML CUP MUCOUS MEM ONE; MIDAZOLAM (PF) 2 MG/2 ML VIAL IV PRN; SODIUM CHLORIDE 0.9% 1,000 ML IV ONE; fentaNYL (PF) 50 MCG/ML 2 ML AMP IV PRN
[2018-06-15 08:47] VITALS: TEMP 97
[2018-06-15] MEDS ORDERED: DEXAMETHASONE SOD PHOSPHATE 10 MG/ML 1 ML VIAL IV ONE (08:56)
[2018-06-15] MEDS ORDERED: ONDANSETRON 4 MG/2 ML VIAL IVP ONE (08:56)
[2018-06-15] MEDS ORDERED: SCOPOLAMINE 1.5MG/72HR PATCH TRANSDERM ONE (08:56)
[2018-06-15] MEDS ORDERED: LIDOCAINE HCL/PF 20 MG/ML ML INHALATION ONE ×2 (09:00→20:00)
[2018-06-15] MEDS ORDERED: LIDOCAINE 2% (PF) 20 MG/ML 10 ML AMP INHALATION ONE (09:15)
--- NOTE | 2018-06-15 11:05 | CT ---
EXAMINATION TYPE: CT Chest wo louann [facility] Protocol DATE OF EXAM: 06/15/2018 COMPARISON: PET scan 06/02/2018 HISTORY: BRONCHIAL NAVAGATION CT DLP: 587 mGycm Automated exposure control for dose reduction was used. FINDINGS: Exam performed as part of a bronchial navigation Limited exam. Atherosclerotic change aorta and previ ous bilateral breast surgery noted. There are emphysematous change of the lungs with pleural effusion on the right with pleural nodularit y. There is an ill-defined lobular RLL bronchogenic masslike soft tissue density lesion in the lowerm ost posterior RLL, measuring approximately 6 cm craniocaudal by 4 cm AP by 3 cm transverse. There is a second ill-defined masslike bronchogenic RLL lesion measuring 5 cm diameter, with 50% cavitation, l ocated immediately cephalad and anterior to the aforementioned masslike finding. Due to technique and lack of contrast assessment of the mediastinum for adenopathy is markedly limite d. Coronary artery calcification noted. Suspect there is confluent adenopathy in the right hilum, sub carinal and paratracheal region. The previously seen hypodense 12 x 6 mm lower left thyroid nodule is redemonstrated, with similar carol earance. Hypertrophic and degenerative change of the vertebral column. Area of sclerosis involving th e upper lumbar segment did not appear to be positive by recent PET scan and therefore likely is benig n but could be followed on a short-term basis given its small size for confirmation. Splenic granulom a and noted and there is atherosclerotic change of the aorta. Suspect bilateral adrenal mass is great er on the left measuring 2.1 cm. IMPRESSION: 1) TWO LARGE RIGHT LOWER LOBE BRONCHOGENIC LESIONS, WITH ASSOCIATED PROMINENT RIGHT HILAR AND MEDIAST INAL ADENOPATHY. 2) CORONARY CALCIFICATIONS. 3. SUSPECT BILATERAL ADRENAL MASSES GREATER ON THE LEFT METASTASES IN THE DIFFERENTIAL DIAGNOSIS.
[2018-06-15] MEDS ORDERED: fentaNYL (PF) 50 MCG/ML 2 ML AMP ONE (11:11)
[2018-06-15] MEDS ORDERED: MIDAZOLAM 2 MG/2 ML VIAL ONE (11:11)
[2018-06-15] MEDS ORDERED: ROCURONIUM BROMIDE 10 MG/ML 10 ML VIAL IV ONE (11:11)
[2018-06-15] MEDS ORDERED: LIDOCAINE 1% INJ 10MG/ML (20 ML MDV) ONE (11:11)
[2018-06-15] MEDS ORDERED: NEOSTIGMINE 1 MG/ML 10 ML VIAL ONE (11:11)
[2018-06-15] MEDS ORDERED: PROPOFOL 10 MG/ML 20 ML VIAL IV ONE (11:11)
[2018-06-15] MEDS ORDERED: GLYCOPYRROLATE 0.2 MG/ML 2 ML VIAL ONE (11:11)
[2018-06-15] MEDS ORDERED: IV FLUID CONTINUATION 1,000 ML IV ONE (12:04)
--- NOTE | 2018-06-15 12:32 | PCN ---
PROCEDURE NOTE This is navigational bronchoscopy. PREOPERATIVE DIAGNOSIS: Right lower lobe mass. POSTOPERATIVE DIAGNOSIS: Rule out cancer. PROCEDURE: The patient's procedure was done in room #1 in the operating room. Brian Davis CRNA provided unconscious sedation, general anesthesia along with Dr. Nye. The operators were Dr. Ash, Dr. Miles, and Krys Joe. The procedure was navigational bronchoscopy. There was universal timeout. There was informed consent. After the patient was adequately sedated and anesthetized, the bronchoscope was pushed through the bronchoscope adapter connected to the endotracheal tube. We use the navigational system to identify the lesion in the right lower lobe. Initially we did needle biopsies of lesion. We had pathology standing by. On the second pass, Dr. oS was able to tell us that there was cancer cells present, likely a non-small cell lung cancer, and he thought maybe squamous cell. He wanted us to get another pass, a third pass for the block. We did that. In addition, we brushed the area and washed the area. There was no immediate complication. There was no significant bleeding. The patient was stable throughout the procedure. The patient will be recovered. I will speak to the patient's daughter after the procedure. No additional recommendations were made. The patient tolerated the procedure well. MMODL / IJN: [id number] /
--- NOTE | 2018-06-15 12:42 | XR ---
EXAMINATION TYPE: XR chest 1V DATE OF EXAM: 06/15/2018 COMPARISON: 05/22/2018 HISTORY: Status post bronchoscopy TECHNIQUE: Single frontal view of the chest is obtained. FINDINGS: There are increasing bibasilar opacities status post navigational bronchoscopy. Portions o f the right lower lobe opacity may relate to postbiopsy hemorrhage. Opacities obscuring the known rig ht lower lobe probable neoplasm. Remainder the lungs are well aerated. Cardia mediastinal silhouette is mildly enlarged. Osseous structures are grossly intact. No postprocedural pneumothorax. IMPRESSION: Bibasilar opacities likely relate to component of atelectasis, right lower lobe pulmonar y masses, postbiopsy hemorrhage, and overlying soft tissues.
[2018-06-15 13:26] VITALS: BP 116/74; PULSE 90; RESP 16
[2018-06-15 17:11] LABS: Appearance,BF Hazy; Color,BF Red; Nucleated Cells, Body Fluid 20 /uL; RBC, Body Fluid 1640 /uL
[2018-06-15 17:14] LABS: Mononuclear WBC,Body Fluid 29 %; Polynuclear WBC,Body Fluid 70 %; Total Cells Counted,Body Fluid 100
== END 2018-06-15 13:43 | disposition home or self-care (01) ==
LOC: ORWHC2ENDO 08:28
PROVIDERS: ATTEND Internal Medicine Critical Care Medicine
DX: C34.31 Malignant neoplasm of lower lobe, right bronchus or lung (principal); R91.8 Other nonspecific abnormal finding of lung field; E78.5 Hyperlipidemia, unspecified; N20.0 Calculus of kidney; M19.90 Unspecified osteoarthritis, unspecified site; Z79.82 Long term (current) use of aspirin; Z79.899 Other long term (current) drug therapy; Z88.2 Allergy status to sulfonamides; Z87.891 Personal history of nicotine dependence; Z98.51 Tubal ligation status
CPT/HCPCS: 94640; 87798 ×3; 87496; 87498; 87529 ×2; 88104; 88108; 88305; 88173; 89050; 88342; 87252; 87502; 87634; 88341; 87070; 87205; 87116; 87102; 87206; 71045; 71250; 31629; 31623; 31627; J2250; J0461; J1100; J2710; J2001 ×2; J2405; J3010; J2704; 31624

== ENCOUNTER → 2018-06-18 | Outpatient (CLI) | payer MEDICARE ==
--- NOTE | 2018-06-18 20:40 | ECHOF ---
Referral Reason:Shortness of Breath R06.02 MEASUREMENTS -------- HEIGHT: 152.4 cm WEIGHT: 40.4 kg BP: RVIDd: 1.9 cm (< 3.3) IVSd: 0.9 cm (0.6 - 1.1) LVIDd: 3.3 cm (3.9 - 5.3) LVPWd: 0.9 cm (0.6 - 1.1) IVSs: 1.1 cm LVIDs: 2.5 cm LVPWs: 1.0 cm Ao Diam: 3.0 cm (2.0 - 3.7) AV Cusp: 1.4 cm (1.5 - 2.6) LA Diam: 2.1 cm (2.7 - 3.8) MV EXCURSION: 18.330 mm (> 18.000) MV EF SLOPE: 108 mm/s (70 - 150) MV E Brian: 0.80 m/s MV DecT: 324 ms MV A Brian: 0.85 m/s MV E/A Ratio: 0.95 RAP: 5.00 mmHg RVSP: 19.89 mmHg FINDINGS -------- Sinus rhythm. This was a technically good study. Pt. Has Breast inplants The left ventricular size is normal. Left ventricular wall thickness is normal. Overall left vent ricular systolic function is normal with, an EF between 55 - 60 %. The right ventricle is normal in size and function. Normal LA size by volume 22+/-6 ml/m2. The right atrium is normal in size. Aortic valve is trileaflet and is mildly thickened. There is no evidence of aortic regurgitation. There is no evidence of aortic stenosis. The mitral valve leaflets are mildly thickened. There is trace to mild mitral regurgitation. Mild tricuspid regurgitation present. Right ventricular systolic pressure is normal at < 35 mmHg. There is no evidence of pulmonary hypertension. Trace/mild (physiologic) pulmonic regurgitation. The aortic root size is normal. Normal inferior vena cava with normal inspiratory collapse consistent with estimated right atrial pre ssure of 5 mmHg. There is a small pericardial effusion is located near the right atrium. CONCLUSIONS -------- 1. Sinus rhythm. 2. This was a technically good study. 3. Pt. Has Breast inplants 4. The left ventricular size is normal. 5. Left ventricular wall thickness is normal. 6. Normal LA size by volume 22+/-6 ml/m2. 7. Aortic valve is trileaflet and is mildly thickened. 8. The mitral valve leaflets are mildly thickened. 9. There is trace to mild mitral regurgitation. 10. Mild tricuspid regurgitation present. 11. Right ventricular systolic pressure is normal at < 35 mmHg. 12. There is no evidence of pulmonary hypertension. 13. Trace/mild (physiologic) pulmonic regurgitation. 14. The aortic root size is normal. 15. There is a small pericardial effusion is located near the right atrium. CONCRETE TILE MACHINE OPERATOR: Azael Ko RDCS
== END ==
LOC: RADECHMAIN 16:11
PROVIDERS: ATTEND Internal Medicine Hematology & Oncology
DX: I08.1 Rheumatic disorders of both mitral and tricuspid valves (principal); Z98.82 Breast implant status
CPT/HCPCS: 93306

== ENCOUNTER → 2018-07-30 | Outpatient (CLI) | payer MEDICARE ==
[2018-07-30 14:01] VITALS: BMI 17.4
== END | disposition home or self-care (01) ==
LOC: LABWHC1 12:25
PROVIDERS: ATTEND Internal Medicine Hematology & Oncology
DX: R63.0 Anorexia (principal); R63.4 Abnormal weight loss
CPT/HCPCS: 97802

== ENCOUNTER → 2018-09-15 | Outpatient (CLI) | payer MEDICARE ==
--- NOTE | 2018-09-17 07:46 | PE ---
EXAMINATION TYPE: PET CT fusion skull to thigh DATE OF EXAM: 09/15/2018 COMPARISON: PET/CT June 02, 2018. CT chest June 15, 2018. HISTORY: Right-sided lung cancer completed chemotherapy July 18, 2018. TECHNIQUE: Following the intravenous administration of 12.33 mCi of F-18 FDG, whole body images are performed from the skull base to the midthigh. Images are reviewed on the computer in the coronal, a xial, and sagittal planes. Reconstructed rotating images are created on independent workstation and reviewed on the computer. A noncontrast CT is performed in conjunction with the PET scan. SCAN: Subsequent Scan FINDINGS: SKULL BASE AND NECK: No new areas of abnormal hypermetabolic uptake. CHEST, MEDIASTINUM, AND HILAR REGION: Background mild to moderate underlying emphysematous change red emonstrated. There is moderate size right pleural effusion increased in size from prior exams. Previo usly visualized hypermetabolic consolidation centrally right lower lobe extending posteriorly inferio rly to pleural surface and centrally and to the right hilum is markedly improved on current study as no suspicious hypermetabolic uptake remains present with some masslike consolidation air bronchograms best appreciated axial image 90 still seen. No definitive hypermetabolic or enlarged thoracic lymph nodes on current study. Focus of hypermetabol ic uptake medial right posterior pleural surface is not clearly seen on current study at subcarinal l evel. No new areas of abnormal hypermetabolic uptake are present. ABDOMEN AND PELVIS: No new areas of abnormal hypermetabolic uptake. Previously visualized hypermetabo lic focus periaortic region upper abdomen centrally on prior study is not clearly seen. Diffuse uptak e throughout the bowel and bladder is seen. OSSEOUS STRUCTURES: No new areas of abnormal hypermetabolic uptake. OTHER CT: Mild calcified plaque carotid bulb level, left greater than right is redemonstrated. Bilateral breast implants are again seen. There is moderate three-vessel coronary artery calcificatio n which is noted marker for underlying coronary artery disease. Multiple calcifications throughout the spleen are consistent with product of old granulomatous diseas e. Patient has very little intra-abdominal fat making evaluation suboptimal. Moderate calcified plaqu e of the abdominal aorta extends into pelvic branch vessels. Gallbladder has distended margins. There is facet arthropathy in the lower lumbar spine. IMPRESSION: Marked positive treatment response without suspicious residual suspicious hypermetabolic uptake seen on current study. Enlarging now moderate size right pleural effusion is however noted.
== END | disposition home or self-care (01) ==
LOC: RADPETMAIN 07:53
PROVIDERS: ATTEND Internal Medicine Hematology & Oncology
DX: C34.31 Malignant neoplasm of lower lobe, right bronchus or lung (principal); Z92.21 Personal history of antineoplastic chemotherapy
CPT/HCPCS: 78815; A9552

== ENCOUNTER → 2018-12-08 | Outpatient (CLI) | payer MEDICARE ==
--- NOTE | 2018-12-11 16:20 | PE ---
EXAMINATION TYPE: PET CT fusion skull to thigh DATE OF EXAM: 12/08/2018 COMPARISON: 09/15/2018 HISTORY: Lung cancer on the right with prior chemotherapy in July 2018. No surgery or radiation. Subsequent treatment strategy. TECHNIQUE: Following the intravenous administration of 11.277 mCi of F-18 FDG, whole body images are performed from the skull base to the midthigh. Images are reviewed on the computer in the coronal, axial, and sagittal planes. Reconstructed rotating images are created on independent workstation and reviewed on the computer. A localization and attenuation correction CT is performed in conjunction with the PET scan. SCAN: Subsequent FINDINGS: Mediastinal background: 1.37 Abdominal background: 1.87 SKULL BASE AND NECK: No suspicious hypermetabolic uptake. CHEST, MEDIASTINUM, AND HILAR REGION: Right lower lobe consolidation with contiguous linear bandlike scarring extending from the hilum to the pleural surface appears similar in morphology/configuration from the prior of 09/15/2018. Excluding the adjacent pulmonary vasculature this measures approximately 3.3 x 1.9 cm on series 3 image 97 with air bronchograms, unchanged in size from the prior. This has a maximum SUV of 1.02. Nodular component elongates on series 3 image 101 measuring 1.0 x 1.0 cm, decr ease in size from the prior and likely related to atelectasis. This has a maximum SUV of 0.89. No new suspicious nodule or mass. ABDOMEN AND PELVIS: Focal hypermetabolic uptake is seen near the zenon hepatis with a maximum SUV of 2.3 cm however no discrete lesion is seen on unenhanced CT. This could relate to adenopathy or hepati c lesion and further evaluation with enhanced MR abdomen is recommended. OSSEOUS STRUCTURES: Nonspecific sclerotic lesion of the left iliac bone is present on series 3 image 135 measuring 1.0 cm. The most remote exam available for comparison is 06/02/2018 and this lesion is new from that prior exam, however at this location this could also be degenerative in nature. This antony s a maximum SUV of 1.26, below abdominal background. OTHER CT: There is a similar moderate to large right pleural effusion (hypometabolic with a maximum S UV of 0.51) with associated compressive atelectasis. No left pleural effusion is seen. Bilateral luis st implants are present. Moderate three-vessel coronary calcifications. Very trace amount of pericard ial fluid. Benign splenic granulomas. Extensive atherosclerosis of the abdominal aorta and its branch es. No dilated large or small bowel. Calcified right adnexal structure could be related to the gonada l vein phlebolith or less likely dermoid. Moderate degree fecal stasis is seen. Noncontrast exam limi ts evaluation for visceral metastasis that are not hypermetabolic, however no discrete solid visceral lesion is seen. The liver is enlarged extending beyond the iliac crest. There is a nonspecific scler otic lesion of the left iliac bone measuring 1.0 cm. Multilevel degenerative changes of the spine are seen. Paranasal sinuses and mastoid air cells are well aerated. Carotid atherosclerosis is incidenta lly noted. Biapical pleural parenchymal scarring and paraseptal emphysematous changes the lungs. Scat tered geographic groundglass opacities may be on the basis of fluid overload or atelectasis. Pneumoni tis is a less likely consideration. IMPRESSION: 1. New focal uptake near the zenon hepatis that is slightly hypermetabolic. No definitive lesion is s een on noncontrast CT images for correlate. No suspicious adenopathy is seen near the zenon hepatis. Enhanced MR abdomen is recommended to exclude metastasis. 2. Stable posttreatment change of the right lung base with no hypermetabolic activity nor change in s ize or morphology of the right lower lobe consolidation. Smaller adjacent consolidation is also hypom etabolic and likely atelectasis. 3. Hypometabolic left iliac lesion is new in comparison to the most remote exam of 06/02/2018 and cou ld represent small currently metabolically inactive metastatic focus, however at this location degene rative changes also possible and continued surveillance is recommended. No additional suspicious osse ous lesions are seen. 4. Stability of the moderate to large right pleural effusion without hypermetabolic activity. No new pulmonary masses seen. No hypermetabolic supraclavicular nor mediastinal adenopathy.
== END | disposition home or self-care (01) ==
LOC: RADPETMAIN 10:38
PROVIDERS: ATTEND Internal Medicine Hematology & Oncology
DX: J90 Pleural effusion, not elsewhere classified (principal); M89.8X8 Other specified disorders of bone, other site; C34.31 Malignant neoplasm of lower lobe, right bronchus or lung
CPT/HCPCS: 78815; A9552

== ENCOUNTER → 2019-03-23 | Outpatient (CLI) | payer MEDICARE ==
--- NOTE | 2019-03-27 10:46 | PE ---
Nuclear medicine PET/CT HISTORY: Lung carcinoma, subsequent Patient received 11.5 mCi F-18 FDG intravenously in delayed scanning performed from the skull base to the mid thighs. Localization and attenuation correction CT scan was performed. Correlation to prior nuclear medicine PET/CT 12/08/2018 Neck and chest: There is no evident cervical, axillary, hilar, or mediastinal adenopathy. Bilateral b reast prostheses are present. Sizable right pleural effusion is again noted. Bandlike areas of increa sed attenuation in the right midlung, air bronchograms are a stable finding. There are coronary arter y calcifications present. No suspicious hypermetabolic uptake. ABDOMEN: There is no adrenal mass. No liver mass or retroperitoneal adenopathy. Aorta shows dense ath eromatous change. Splenic calcifications are again seen. No suspicious hypermetabolic uptake. Osseous structures are unchanged. IMPRESSION: Stable findings. No significant interval change. No suspicious hypermetabolic uptake.
== END | disposition home or self-care (01) ==
LOC: RADPETMAIN 09:18
PROVIDERS: ATTEND Internal Medicine Hematology & Oncology
DX: C34.31 Malignant neoplasm of lower lobe, right bronchus or lung (principal)
CPT/HCPCS: 78815; A9552

== ENCOUNTER → 2019-05-20 | Outpatient (CLI) | payer MEDICARE ==
--- NOTE | 2019-05-20 18:39 | ECHOF ---
Referral Reason:Z01.818 Chemo, C34.31 Lung Ca MEASUREMENTS -------- HEIGHT: 152.4 cm WEIGHT: 40.8 kg BP: 141/75 RVIDd: 3.2 cm (< 3.3) IVSd: 1.0 cm (0.6 - 1.1) LVIDd: 2.7 cm (3.9 - 5.3) LVPWd: 1.0 cm (0.6 - 1.1) IVSs: 1.3 cm LVIDs: 1.8 cm LVPWs: 1.3 cm LA Diam: 2.6 cm (2.7 - 3.8) LAESV Index (A-L): 15.58 ml/m Ao Diam: 3.0 cm (2.0 - 3.7) AV Cusp: 1.3 cm (1.5 - 2.6) MV EXCURSION: 13.839 mm (> 18.000) MV EF SLOPE: 63 mm/s (70 - 150) EPSS: 0.4 cm MV E Brian: 0.85 m/s MV DecT: 243 ms MV A Brian: 0.81 m/s MV E/A Ratio: 1.05 AR PHT: 578 ms RAP: 5.00 mmHg RVSP: 20.81 mmHg FINDINGS -------- Sinus rhythm. This was a technically adequate study. The left ventricular size is normal. Left ventricular wall thickness is normal. Overall left vent ricular systolic function is normal with, an EF between 60 - 65 %. The right ventricle is normal in size. Normal LA size by volume 22+/-6 ml/m2. The right atrium is normal in size. Interatrial and interventricular septum intact. The aortic valve is trileaflet and appears structurally normal. Trace to mild aortic regurgitation. Mild mitral regurgitation is present. Mild tricuspid regurgitation present. Right ventricular systolic pressure is normal at < 35 mmHg. Trace/mild (physiologic) pulmonic regurgitation. The aortic root size is normal. Normal inferior vena cava with normal inspiratory collapse consistent with estimated right atrial pre ssure of 5 mmHg. There is no pericardial effusion. Large Pleural Effusion. CONCLUSIONS -------- 1. Sinus rhythm. 2. This was a technically adequate study. 3. The left ventricular size is normal. 4. Left ventricular wall thickness is normal. 5. Overall left ventricular systolic function is normal with, an EF between 60 - 65 %. 6. The right ventricle is normal in size. 7. Normal LA size by volume 22+/-6 ml/m2. 8. The right atrium is normal in size. 9. Interatrial and interventricular septum intact. 10. The aortic valve is trileaflet and appears structurally normal. 11. Trace to mild aortic regurgitation. 12. Mild mitral regurgitation is present. 13. Mild tricuspid regurgitation present. 14. Right ventricular systolic pressure is normal at < 35 mmHg. 15. Trace/mild (physiologic) pulmonic regurgitation. 16. The aortic root size is normal. 17. Normal inferior vena cava with normal inspiratory collapse consistent with estimated right atrial pressure of 5 mmHg. 18. There is no pericardial effusion. 19. Large Pleural Effusion. CRYSTAL MACHINING COORDINATOR: Mariposa Che RDCS
== END | disposition home or self-care (01) ==
LOC: RADECHMAIN 10:53
PROVIDERS: ATTEND Internal Medicine Hematology & Oncology
DX: I08.3 Combined rheumatic disorders of mitral, aortic and tricuspid valves (principal); C34.31 Malignant neoplasm of lower lobe, right bronchus or lung
CPT/HCPCS: 93306

== ENCOUNTER → 2019-07-05 | Outpatient (CLI) | payer MEDICARE ==
--- NOTE | 2019-07-08 00:45 | PE ---
EXAMINATION TYPE: PET CT fusion skull to thigh DATE OF EXAM: 07/05/2019 CLINICAL HISTORY: 69-year-old female restaging right lung cancer, diagnosed in May 2018. Status post chemotherapy. TECHNIQUE: Following the intravenous administration of 11.58 mCi of F-18 FDG, whole body images are performed from the skull base to the midthigh. Images are reviewed on the computer in the coronal, axial, and sagittal planes. Reconstructed rotating images are created on independent workstation and reviewed on the computer. A localization and attenuation correction CT is performed in conjunction with the PET scan. Glucose level: 101 mg/dL Injection site: Right AC COMPARISON: 03/23/2019. FINDINGS: PET: Physiologic FDG uptake within the neck. Low-density 1.8 cm nodule left adrenal gland stable back to 06/02/2018 showing no discrete FDG uptake . There is a fatty area within the right posterior pelvis measuring up to 5.5 cm, unchanged from prior showing no discrete FDG uptake, possible lipomatosis or ovarian dermoid. Otherwise, physiologic FDG uptake within the abdomen and pelvis. ATTENUATION CORRECTION CT: New moderate to severe mucosal thickening ethmoid air cells. Air-fluid level left maxillary sinus and trace within the right maxillary sinus. Mastoid air cells well pneumatized. No cervical lymphadenopa thy. Continued moderate sized right pleural effusion layering up to the apex with focal right lower lobe p eribronchial vascular opacity with associated volume loss and consolidation. No appreciable FDG uptak e in this region. Bilateral breast implants redemonstrated. Heart normal size without pericardial effusion. Coronary ar kevin calcifications are present. Aorta normal caliber with conventional vessel branching anatomy. No thoracic lymphadenopathy by CT size criteria. Mild centrilobular emphysema. Hazy dependent atelectasi s. Moderate right pleural effusion with adjacent atelectasis. Moderate atherosclerotic calcifications abdominal aorta and iliac arteries. Moderate stool burden. No dilated small bowel, free fluid or free air. Calcified granulomas within the spleen. No abnormal fluid collection the pelvis. Uterus is visualized. Bladder collapsed with some indentatio n from bowel loops along the right side of the bladder wall. Bones: Facet arthropathy lower lumbar spine. No osseous destructive process. IMPRESSION: 1. Stable moderate-sized right pleural effusion and chronic posttreatment changes within the right lo wer lobe. No CT or metabolic evidence for recurrent disease. 2. COPD with mild emphysema. A 1.8 cm left adrenal nodule is stable back to 06/02/2018 and shows no u ptake suggestive of a benign adrenal adenoma. 3. New air-fluid levels left greater than right maxillary sinuses. Correlate for acute sinusitis.
== END | disposition home or self-care (01) ==
LOC: RADPETMAIN 15:04
PROVIDERS: ATTEND Internal Medicine Hematology & Oncology
DX: C34.31 Malignant neoplasm of lower lobe, right bronchus or lung (principal); J90 Pleural effusion, not elsewhere classified; J43.9 Emphysema, unspecified
CPT/HCPCS: 78815; A9552

== ENCOUNTER → 2019-08-30 | Outpatient (CLI) | payer MEDICARE ==
--- NOTE | 2019-08-30 10:15 | MR ---
EXAMINATION TYPE: MR brain wo/w con DATE OF EXAM: 08/30/2019 COMPARISON: 05/23/[address] 07/05/2019 HISTORY: 69-year-old female Headache, visual disturbance, lung ca TECHNIQUE: Multiplanar, multisequence images of the brain and brainstem were acquired before and aft er administration of 4 mL IV Gadavist. Diffusion weighted imaging is performed. FINDINGS: No evidence for acute infarction, hemorrhage, mass, mass effect, midline shift, herniation, effacemen t of basal cisterns, or extra-axial fluid collection. The ventricles and sulci are age-appropriate mild generalized cerebral cortical atrophy. Major intracranial flow voids are intact. T2/FLAIR weighted sequences demonstrate stable mild to moderate scattered bright white matter foci pa rticularly in the subcortical region of the posterior hemispheres. Midline structures demonstrate normal morphology. The craniocervical junction is normal. Post contrast images demonstrate no evidence of pathologic enhancement. Small nodular area of enhance ment just below the right foramen of Luschka in the right cerebellum, axial image 16 corresponds to a blood vessel on sagittal series. Dural venous sinuses are patent. Mild mucosal thickening ethmoid air cells. Globes are intact. Trapped fluid right mastoid air cells. IMPRESSION: 1. No MRI findings of intracranial metastases including leptomeningeal disease. 2. No acute intracranial abnormality. Similar mild generalized atrophy and scattered mild to moderate burden of chronic small vessel ischemic disease. 3. Some trapped fluid in the right mastoid air cells. Correlate for any mastoid pain to exclude masto iditis.
== END | disposition home or self-care (01) ==
LOC: RADMRIMAIN 07:38
PROVIDERS: ATTEND Internal Medicine Hematology & Oncology
DX: G31.9 Degenerative disease of nervous system, unspecified (principal); I67.82 Cerebral ischemia; C34.31 Malignant neoplasm of lower lobe, right bronchus or lung
CPT/HCPCS: 70553; A9585

== ENCOUNTER → 2019-12-21 | Outpatient (CLI) | payer MEDICARE ==
--- NOTE | 2019-12-23 12:18 | PE ---
EXAMINATION TYPE: PET CT fusion skull to thigh DATE OF EXAM: 12/21/2019 COMPARISON: Prior PET/CT July 05, 2019 and older studies. HISTORY: Lung cancer progress study. Recently diagnosed May 22, 2018 right lower lobe with ongoi ng chemotherapy. TECHNIQUE: Following the intravenous administration of 13.69 mCi of F-18 FDG, whole body images are performed from the skull base to the midthigh. Images are reviewed on the computer in the coronal, a xial, and sagittal planes. Reconstructed rotating images are created on independent workstation and reviewed on the computer. A noncontrast CT is performed in conjunction with the PET scan. SCAN: Subsequent Scan FINDINGS: SKULL BASE AND NECK: No new areas of suspicious abnormal hypermetabolic uptake. CHEST, MEDIASTINUM, AND HILAR REGION: Mild underlying emphysematous change redemonstrated. Persistent stable moderate-sized right pleural effusion. Persistent right lower lobe ill-defined consolidation with bronchiectasis but new roughly 1 cm focus of mild hypermetabolic uptake axial image 99 Max SUV 2 .98. Likely some recurrent active neoplasm. ABDOMEN AND PELVIS: Stable ametabolic 1.8 cm left adrenal mass axial image 117. No new areas of abno rmal hypermetabolic uptake. OSSEOUS STRUCTURES: No new areas of abnormal hypermetabolic uptake. OTHER CT: Improved paranasal sinus disease. Moderate calcified plaque bilateral carotid bulb level re demonstrated. Bilateral breast implants redemonstrated. Coronary artery calcifications are redemonstrated. Moderate atherosclerotic calcifications abdominal aorta and iliac arteries. Moderate stool burden red emonstrated. Calcified granulomas within the spleen again seen. Bones: Facet arthropathy lower lumbar spine. No osseous destructive process. Scoliotic curvature. Mul tilevel spurring. IMPRESSION: Likely local active neoplastic recurrence with new mild hypermetabolic uptake right lower lobe. No new hypermetabolic metastatic malignancy or thoracic adenopathy.
== END | disposition home or self-care (01) ==
LOC: RADPETMAIN 07:54
PROVIDERS: ATTEND Internal Medicine Hematology & Oncology
DX: C34.31 Malignant neoplasm of lower lobe, right bronchus or lung (principal)
CPT/HCPCS: 78815; A9552

== ENCOUNTER → 2020-01-28 | Outpatient (CLI) | payer MEDICARE ==
[2020-01-28 11:27] LABS: African American GFR (CKD) >90 (>60 ml/min/1.73 sqM); Blood Urea Nitrogen 26 mg/dL (7-17); Non-African American GFR(CKD) 85 (>60 ml/min/1.73 sqM)
--- NOTE | 2020-01-28 12:29 | CT ---
EXAMINATION TYPE: CT chest w con DATE OF EXAM: 01/28/2020 COMPARISON: Chest CT May 22, 2018. Prior PET/CT December 21, 2019 and older PET CTs. HISTORY: follow up lung cancer originally diagnosed in May 2018 CT DLP: 104.4 mGycm. Automated Exposure Control for Dose Reduction was Utilized. TECHNIQUE: CT scan of the thorax is performed following with IV Contrast, patient injected with 100 mL of Isovue 300. FINDINGS: LUNGS: Persistent small to moderate size right pleural fluid collection or fusion decrease in size fr om most recent PET/CT. Right mid lung shows focal scarring and bronchiectasis adjacent to fluid in fi ssure near axial image 34. Just inferior to this there are 2 right lower lobe nodules redemonstrated measuring 13 x 10 mm and 11 x 9 mm axial image 42. Slightly larger from the most recent PET/CT. Infer ior to this there is persistent mild/moderate linear scarring and/or atelectasis. Mild pleural/parenc hymal scarring right lung apex adjacent to focal pleural fluid collection remains present. Left lung remains clear without new nodules. MEDIASTINUM: There are no definitive new greater than 1 cm hilar or mediastinal lymph nodes. No ca rdiomegaly or pericardial effusion is seen. Coronary artery calcification is redemonstrated. OTHER: Bilateral subpectoral breast implants redemonstrated. Persistent S shaped scoliosis in the spi ne. Stable 1.9 x 1.4 cm left adrenal mass axial image 51. Scattered calcifications throughout the spl een consistent with product of old granulomatous disease are redemonstrated. IMPRESSION: Corresponding to recent PET/CT, small right lower lobe nodules are slightly larger in siz e making suspicious for local active neoplastic recurrence. Small to moderate right pleural fluid col lection slightly improved from most recent PET/CT. No new suspicious nodules or adenopathy. Marked im provement from original PET/CT late 2017 noted.
== END | disposition home or self-care (01) ==
LOC: RADCTMAIN 10:21
PROVIDERS: ATTEND Internal Medicine Hematology & Oncology
DX: J94.8 Other specified pleural conditions (principal); C34.31 Malignant neoplasm of lower lobe, right bronchus or lung; Z88.2 Allergy status to sulfonamides
CPT/HCPCS: 82565; 84520; 71260; 36415; Q9967

== ENCOUNTER → 2020-02-28 | Outpatient (CLI) | payer MEDICARE ==
--- NOTE | 2020-02-28 13:00 | ECHOF ---
Referral Reason:Z01.818 Chemo exposure MEASUREMENTS -------- HEIGHT: 152.4 cm WEIGHT: 42.6 kg BP: IVSd: 0.9 cm (0.6 - 1.1) LVIDd: 3.2 cm (3.9 - 5.3) LVPWd: 1.3 cm (0.6 - 1.1) IVSs: 1.0 cm LVIDs: 2.1 cm LVPWs: 1.1 cm MV EXCURSION: 26.226 mm (> 18.000) MV EF SLOPE: 96 mm/s (70 - 150) EPSS: 1.5 cm MV E Brian: 0.61 m/s MV DecT: 213 ms MV A Brian: 0.74 m/s MV E/A Ratio: 0.82 RAP: 5.00 mmHg RVSP: 26.68 mmHg FINDINGS -------- Sinus rhythm. Pt. Has Breast inplants LV size, wall thickness and systolic function are normal, with an EF greater than 55%. The left esperanza tricular size is normal. The right ventricle is normal in size. The left atrial size is normal. The right atrial size is normal. There is mild aortic valve sclerosis. There is no evidence of aortic regurgitation. Mild mitral regurgitation is present. Mild tricuspid regurgitation present. Right ventricular systolic pressure is normal at < 35 mmHg. There is no pulmonic regurgitation present. There is a small, generalized pericardial effusion present. Small Pleural Effusion. CONCLUSIONS -------- 1. LV size, wall thickness and systolic function are normal, with an EF greater than 55%. 2. The left ventricular size is normal. 3. The right ventricle is normal in size. 4. The left atrial size is normal. 5. The right atrial size is normal. 6. There is mild aortic valve sclerosis. 7. Mild mitral regurgitation is present. 8. Mild tricuspid regurgitation present. 9. There is a small, generalized pericardial effusion present. 10. Small Pleural Effusion. DIRECTOR INDUSTRIAL: Maddie Salazar RDCS
== END | disposition home or self-care (01) ==
LOC: RADECHMAIN 10:20
PROVIDERS: ATTEND Internal Medicine Hematology & Oncology
DX: I08.3 Combined rheumatic disorders of mitral, aortic and tricuspid valves (principal); I31.3 Pericardial effusion (noninflammatory); J90 Pleural effusion, not elsewhere classified; Z88.2 Allergy status to sulfonamides
CPT/HCPCS: 93306

== ENCOUNTER → 2020-04-10 | Outpatient (CLI) | payer MEDICARE ==
[2020-04-10 09:53] LABS: African American GFR (CKD) >90 (>60 ml/min/1.73 sqM); Blood Urea Nitrogen 20 mg/dL (7-17); Non-African American GFR(CKD) 89 (>60 ml/min/1.73 sqM)
--- NOTE | 2020-04-13 00:42 | CT ---
EXAMINATION TYPE: CT ChestAbdPelvis w con DATE OF EXAM: 04/10/2020 COMPARISON: PET/CT 12/21/2019. CT chest 01/28/2020. HISTORY: Lung CA CT DLP: 275.3 mGycm Automated exposure control for dose reduction was used. CONTRAST: CT scan of the chest, abdomen and pelvis is performed with Oral Contrast and with IV Contrast, patien t injected with 95 mL of Isovue 300. FINDINGS: LUNGS: There is persistent moderate right pleural effusion. Scarring and bronchiectasis adjacent to t he minor fissure redemonstrated (4:34). There is atelectasis extending from this region of bronchiect asis, which is obscuring the previously demonstrated pulmonary nodules of the right lower lobe. No pn eumothorax. MEDIASTINUM: There are no greater than 1 cm hilar or mediastinal lymph nodes. No pericardial effusi on is seen. Calcified coronary artery disease. Cardiac size normal. LIVER: Normal. BILIARY SYSTEM: Normal. PANCREAS: Normal. SPLEEN: Calcified granuloma. ADRENALS: Redemonstrated left adrenal 1.9 cm mass, most likely benign adrenal adenoma. Right adrenal gland normal. KIDNEYS: Normal. BOWEL: No obstruction or thickening. Moderate colonic stool burden. PERITONEUM: No pneumoperitoneum. No free fluid. LYMPH NODES: No lymphadenopathy. PELVIS: Markedly distended urinary bladder. Uterus and adnexa normal. VASCULATURE: No abdominal aortic aneurysm. MUSCULOSKELETAL: No aggressive osseous destructive lesions. Bilateral breast implants. IMPRESSION: 1. Increased atelectasis of the right lower lobe is obscuring the previously demonstrated pulmonary n odules. Redemonstrated moderate right pleural effusion. 2. No evidence of metastatic disease within the abdomen or pelvis.
== END | disposition home or self-care (01) ==
LOC: RADCTMAIN 09:00
PROVIDERS: ATTEND Internal Medicine Hematology & Oncology
DX: J98.11 Atelectasis (principal); J90 Pleural effusion, not elsewhere classified; C34.90 Malignant neoplasm of unspecified part of unspecified bronchus or lung; Z88.2 Allergy status to sulfonamides; Z92.21 Personal history of antineoplastic chemotherapy
CPT/HCPCS: 82565; 84520; 71260; 74177; 36415; Q9967 ×2

== ENCOUNTER → 2020-06-26 | Outpatient (CLI) | payer MEDICARE ==
--- NOTE | 2020-06-26 12:02 | ECHOF ---
Referral Reason:Z01.818 Chemo Exposure, C34.31 lung cancer, Z03.89 MEASUREMENTS -------- HEIGHT: 152.4 cm WEIGHT: 42.2 kg BP: IVSd: 0.7 cm (0.6 - 1.1) LVIDd: 3.5 cm (3.9 - 5.3) LVPWd: 0.7 cm (0.6 - 1.1) IVSs: 1.0 cm LVIDs: 2.2 cm LVPWs: 1.1 cm LAESV Index (A-L): 19.71 ml/m Ao Diam: 2.8 cm (2.0 - 3.7) AV Cusp: 1.8 cm (1.5 - 2.6) MV EXCURSION: 19.523 mm (> 18.000) MV EF SLOPE: 88 mm/s (70 - 150) EPSS: 0.2 cm MV E Brian: 0.63 m/s MV DecT: 198 ms MV A Brian: 0.76 m/s MV E/A Ratio: 0.83 RAP: 5.00 mmHg RVSP: 21.98 mmHg FINDINGS -------- Sinus rhythm. This was a technically good study. Pt. Has Breast inplants Pt is currently going thru chemo x2 da matthew. LV size, wall thickness and systolic function are normal, with an EF greater than 55%. The left esperanza tricular size is normal. The diastolic filling pattern is normal for the age of the patient 11.49. The right ventricle is normal in size. Normal LA size by volume 22+/-6 ml/m2. The right atrial size is normal. Aortic valve is trileaflet and is mildly thickened. There is no evidence of aortic regurgitation. The mitral valve leaflets are mildly thickened. Mild mitral regurgitation is present. The tricuspid valve appears structurally normal. Mild tricuspid regurgitation present. Right vent ricular systolic pressure is normal at < 35 mmHg. There is no pulmonic regurgitation present. The aortic root size is normal. There is no pericardial effusion. CONCLUSIONS -------- 1. LV size, wall thickness and systolic function are normal, with an EF greater than 55%. 2. Normal LA size by volume 22+/-6 ml/m2. 3. Mild mitral regurgitation is present. 4. Mild tricuspid regurgitation present. 5. There is no pericardial effusion. PROCEDURE TECH: Maddie Salazar RDCS
== END | disposition home or self-care (01) ==
LOC: RADECHMAIN 11:14
PROVIDERS: ATTEND Internal Medicine Hematology & Oncology
DX: I08.1 Rheumatic disorders of both mitral and tricuspid valves (principal); Z88.2 Allergy status to sulfonamides
CPT/HCPCS: 93306

== ENCOUNTER → 2020-07-06 | Outpatient (CLI) | payer MEDICARE ==
[2020-07-06 12:37] LABS: African American GFR (CKD) >90 (>60 ml/min/1.73 sqM); Blood Urea Nitrogen 22 mg/dL (7-17); Non-African American GFR(CKD) >90 (>60 ml/min/1.73 sqM)
--- NOTE | 2020-07-06 14:37 | CT ---
EXAMINATION TYPE: CT ChestAbdPelvis w con DATE OF EXAM: 07/06/2020 COMPARISON: Most recent CT April 10, 2020 and older CTs and PET CTs. HISTORY: History of breast and lung cancer. CT DLP: 389.7 mGycm. Automated Exposure Control for Dose Reduction was Utilized. CONTRAST: CT scan of the thorax, abdomen and pelvis is performed with oral and with IV Contrast, patient inject ed with 100 mL of Isovue 300. FINDINGS: LUNGS: Persistent moderate right-sided pleural effusion. Associated right basilar compressive atelect asis and mild bronchiectasis similar appearance to prior in the right lower lobe. No new or enlarging nodules. Left lung remains clear. MEDIASTINUM: There are no new greater than 1 cm hilar or mediastinal lymph nodes. No cardiomegaly o r pericardial effusion is seen. Three-vessel coronary artery calcification and/or stents redemonstra sonia. Other: Bilateral breast implants redemonstrated. LIVER/GB: No significant abnormality is appreciated. PANCREAS: No significant abnormality is seen. SPLEEN: Scattered calcifications consistent with old granulomatous disease. ADRENALS: Stable 2.0 x 1.6 cm left adrenal mass axial image 55 from several prior studies. KIDNEYS: No hydronephrosis seen bilaterally. BOWEL: Oral contrast was not reached level of the terminal ileum. There are small bowel feces sign in distal ileal loops. No suspicious stomach or small bowel dilatation. Findings consistent with delaye d passage of ingested material to colonic level. Moderate prominence of fecal material in the right a nd transverse colon. Patient has very little intra-abdominal fat. GENITAL ORGANS: No gross abnormality seen. LYMPH NODES: No greater than 1cm abdominal or pelvic lymph nodes are appreciated. OSSEOUS STRUCTURES: There is S-shaped scoliosis. OTHER: Mild to moderate calcified plaque of the aorta extends into branch vessels. IMPRESSION: Overall stable findings from most recent CT. No new or enlarging nodules or adenopathy t o suggest active neoplastic recurrence or progression.
== END | disposition home or self-care (01) ==
LOC: RADCTMAIN 11:50
PROVIDERS: ATTEND Internal Medicine Hematology & Oncology
DX: C34.31 Malignant neoplasm of lower lobe, right bronchus or lung (principal); Z88.2 Allergy status to sulfonamides
CPT/HCPCS: 82565; 84520; 71260; 74177; 36415; Q9967

== ENCOUNTER → 2020-08-31 | Outpatient (CLI) | payer MEDICARE ==
--- NOTE | 2020-09-01 10:59 | ECHOF ---
Referral Reason:Z01.818 chemo exposure MEASUREMENTS -------- HEIGHT: 152.4 cm WEIGHT: 42.6 kg BP: RVIDd: 1.9 cm (< 3.3) IVSd: 0.7 cm (0.6 - 1.1) LVIDd: 3.3 cm (3.9 - 5.3) LVPWd: 0.8 cm (0.6 - 1.1) IVSs: 1.4 cm LVIDs: 1.8 cm LVPWs: 1.3 cm LAESV Index (A-L): 22.77 ml/m Ao Diam: 2.8 cm (2.0 - 3.7) AV Cusp: 1.5 cm (1.5 - 2.6) LA Diam: 2.2 cm (2.7 - 3.8) MV EXCURSION: 7.820 mm (> 18.000) MV EF SLOPE: 31 mm/s (70 - 150) EPSS: 0.8 cm MV E Brian: 0.70 m/s MV DecT: 206 ms MV A Brian: 0.76 m/s MV E/A Ratio: 0.92 RAP: 5.00 mmHg RVSP: 23.52 mmHg FINDINGS -------- This was a technically good study. The left ventricular size is normal. Left ventricular wall thickness is normal. Overall left vent ricular systolic function is normal with, an EF between 55 - 60 %. The diastolic filling pattern is normal for the age of the patient 17.89. The right ventricle is normal in size. The left atrial size is normal. Normal LA size by volume 22+/-6 ml/m2. The right atrial size is normal. The aortic valve is trileaflet and appears structurally normal. The mitral valve is normal. There is trace mitral regurgitation. The tricuspid valve appears structurally normal. Trace tricuspid regurgitation present. Right esperanza tricular systolic pressure is normal at < 35 mmHg. There is no pulmonic regurgitation present. The aortic root size is normal. Normal inferior vena cava with normal inspiratory collapse consistent with estimated right atrial pre ssure of 5 mmHg. There is no pericardial effusion. Small Pleural Effusion. CONCLUSIONS -------- 1. The left ventricular size is normal. 2. Left ventricular wall thickness is normal. 3. Overall left ventricular systolic function is normal with, an EF between 55 - 60 %. 4. The diastolic filling pattern is normal for the age of the patient 17.89 5. There is trace mitral regurgitation. 6. Trace tricuspid regurgitation present. 7. There is no pericardial effusion. 8. Small Pleural Effusion. ELECTROPLATER APPRENTICE: nAi Smith RDCS
== END | disposition home or self-care (01) ==
LOC: RADECHMAIN 11:13
PROVIDERS: ATTEND Internal Medicine Hematology & Oncology
DX: J90 Pleural effusion, not elsewhere classified (principal); I07.1 Rheumatic tricuspid insufficiency
CPT/HCPCS: 93306

== ENCOUNTER → 2020-11-16 | Outpatient (CLI) | payer MEDICARE ==
--- NOTE | 2020-11-16 13:02 | CT ---
EXAMINATION TYPE: CT ChestAbdPelvis w con DATE OF EXAM: 11/16/2020 COMPARISON: Most recent CT July 06, 2020 and older studies HISTORY: Follow up of lung cancer right lower lobe with remote history of breast cancer. CT DLP: 376.1 mGycm. Automated Exposure Control for Dose Reduction was Utilized. CONTRAST: CT scan of the thorax, abdomen and pelvis is performed with IV Contrast, patient injected with 94 mL of Isovue 300. FINDINGS: LUNGS: Background Mild underlying emphysematous change redemonstrated. Persistent moderate size right -sided pleural effusion. Associated right basilar compressive atelectasis and mild bronchiectasis sim ilar appearance to prior in the right lower lobe. No new or enlarging nodules clearly seen. Left lung remains clear. MEDIASTINUM: There are no new greater than 1 cm hilar or mediastinal lymph nodes. No cardiomegaly o r pericardial effusion is seen. Three-vessel coronary artery calcification and/or stents redemonstra sonia. Other: Bilateral subpectoral breast implants redemonstrated. LIVER/GB: Prominent right hepatic lobe redemonstrated. PANCREAS: No significant abnormality is seen. SPLEEN: Scattered calcifications consistent with old granulomatous disease redemonstrated. ADRENALS: Stable 2 0.9 x 1.4 cm left adrenal mass axial image 53 from several prior studies. KIDNEYS: No hydronephrosis seen bilaterally. BOWEL: Oral contrast does not reach level of the terminal ileum the current study. There are small amaya wel feces sign in left sided small bowel loops on today's study. No suspicious stomach or small bowel dilatation. Findings consistent with delayed passage of ingested material to colonic level. Moderate prominence of fecal material in the right and transverse colon remains present. Patient has very lit tle intra-abdominal fat making evaluation suboptimal. GENITAL ORGANS: Slightly retroflexed uterus. Few scattered bilateral pelvic phleboliths. LYMPH NODES: No new greater than 1cm abdominal or pelvic lymph nodes are appreciated. OSSEOUS STRUCTURES: There is S-shaped scoliosis redemonstrated. OTHER: Mild to moderate calcified plaque of the aorta extends into branch vessels. IMPRESSION: Overall stable findings from most recent, No new or enlarging nodules or adenopathy to flynn ggest active neoplastic recurrence .
== END | disposition home or self-care (01) ==
LOC: RADCTMAIN 10:46
PROVIDERS: ATTEND Internal Medicine Hematology & Oncology
DX: Z03.89 Encounter for observation for other suspected diseases and conditions ruled out (principal); C34.31 Malignant neoplasm of lower lobe, right bronchus or lung; Z88.2 Allergy status to sulfonamides
CPT/HCPCS: 82565; 84520; 71260; 74177; 36415; Q9967

== ENCOUNTER → 2021-03-12 | Outpatient (CLI) | payer MEDICARE ==
--- NOTE | 2021-03-12 17:04 | ECHOF ---
Referral Reason:Z01.818 Chemo exposure MEASUREMENTS -------- HEIGHT: 152.4 cm WEIGHT: 41.3 kg BP: RVIDd: 2.0 cm (< 3.3) IVSd: 0.7 cm (0.6 - 1.1) LVIDd: 3.5 cm (3.9 - 5.3) LVPWd: 0.8 cm (0.6 - 1.1) IVSs: 1.6 cm LVIDs: 1.1 cm LVPWs: 1.3 cm LAESV Index (A-L): 15.49 ml/m Ao Diam: 3.0 cm (2.0 - 3.7) AV Cusp: 1.4 cm (1.5 - 2.6) LA Diam: 1.8 cm (2.7 - 3.8) MV EXCURSION: 11.280 mm (> 18.000) MV EF SLOPE: 97 mm/s (70 - 150) EPSS: 0.5 cm MV E Brian: 0.71 m/s MV DecT: 289 ms MV A Brian: 0.89 m/s MV E/A Ratio: 0.79 RAP: 5.00 mmHg RVSP: 23.47 mmHg FINDINGS -------- This was a technically adequate study. Pt. Has Breast inplants The left ventricular size is normal. Left ventricular wall thickness is normal. Overall left vent ricular systolic function is normal with, an EF between 55 - 60 %. Normal LAP Grade 1 Diastolic Dys function. The right ventricle is normal in size. The left atrial size is normal. Normal LA size by volume 22+/-6 ml/m2. The right atrial size is normal. Aortic valve is trileaflet and is mildly thickened. The mitral valve is normal. The mitral valve leaflets are mildly thickened. Mild mitral regurgita tion is present. The tricuspid valve appears structurally normal. Mild tricuspid regurgitation present. Right vent ricular systolic pressure is normal at < 35 mmHg. There is no pulmonic regurgitation present. The aortic root size is normal. Normal inferior vena cava with normal inspiratory collapse consistent with estimated right atrial pre ssure of 5 mmHg. There is a small pericardial effusion is located near the right atrium. CONCLUSIONS -------- 1. The left ventricular size is normal. 2. Left ventricular wall thickness is normal. 3. Overall left ventricular systolic function is normal with, an EF between 55 - 60 %. 4. Normal LAP Grade 1 Diastolic Dysfunction. 5. Aortic valve is trileaflet and is mildly thickened. 6. The mitral valve leaflets are mildly thickened. 7. Mild mitral regurgitation is present. 8. Mild tricuspid regurgitation present. 9. There is a small pericardial effusion is located near the right atrium. PUBLIC HEALTH OUTREACH WORKER: Ani Smith RDCS
== END | disposition home or self-care (01) ==
LOC: RADECHMAIN 11:28
PROVIDERS: ATTEND Internal Medicine Hematology & Oncology
DX: Z01.818 Encounter for other preprocedural examination (principal); I08.1 Rheumatic disorders of both mitral and tricuspid valves; I31.3 Pericardial effusion (noninflammatory)
CPT/HCPCS: 93306

== ENCOUNTER → 2021-03-16 | Outpatient (CLI) | payer MEDICARE ==
[2021-03-16 10:31] LABS: African American GFR (CKD) >90 (>60 ml/min/1.73 sqM); Blood Urea Nitrogen 28 mg/dL (7-17); Non-African American GFR(CKD) 90 (>60 ml/min/1.73 sqM)
--- NOTE | 2021-03-16 12:09 | CT ---
EXAMINATION TYPE: CT brain w con DATE OF EXAM: 03/16/2021 COMPARISON: MR brain 08/30/2019 HISTORY: Lung CA, headache, possible Mets CT DLP: 1063.20 mGycm Automated exposure control for dose reduction was used. CONTRAST: CT scan of the head is performed with IV Contrast, patient injected with 100 mL of Isovue 300. FINDINGS: There is no abnormal enhancing mass or midline shift identified. The ventricles and sulci are within normal limits in size. The globes are intact and the visualized sinuses are clear. Low-attenuation the white matter is nonspecific. No midline shift or mass effect. IMPRESSION: No diagnostic evidence of metastases.
--- NOTE | 2021-03-16 12:13 | CT ---
EXAMINATION TYPE: CT ChestAbdPelvis w con DATE OF EXAM: 03/16/2021 COMPARISON: CT November 16, 2020 and older studies HISTORY: Lung CA, Obsv. for Mets. History of remote breast cancer. CT DLP: 444.90 mGycm. Automated Exposure Control for Dose Reduction was Utilized. CONTRAST: CT scan of the thorax, abdomen and pelvis is performed with oral and with IV Contrast, patient inject ed with 100 mL of Isovue 300. FINDINGS: LUNGS: Background Mild underlying emphysematous change is redemonstrated. Persistent small to moderat e size right-sided pleural effusion. Associated right basilar compressive atelectasis and mild bronch iectasis similar appearance to prior in the right lower lobe is redemonstrated. No new or enlarging n odules clearly seen. Left lung remains clear. MEDIASTINUM: There are no new greater than 1 cm hilar or mediastinal lymph nodes. No cardiomegaly o r pericardial effusion is seen. Three-vessel coronary artery calcification and/or stents redemonstra sonia. Other: Bilateral subpectoral breast implants redemonstrated. LIVER/GB: Prominent right hepatic lobe redemonstrated. PANCREAS: No significant abnormality is seen. SPLEEN: Scattered calcifications consistent with old granulomatous disease redemonstrated. ADRENALS: Stable 2.9 9 x 1.4 cm left adrenal mass axial image 55 from several prior studies. KIDNEYS: No hydronephrosis seen bilaterally. BOWEL: Oral contrast does not reach level of the terminal ileum and the current study. No suspicious small or large bowel dilatation. Patient has very little intra-abdominal fat making evaluation subopt imal. GENITAL ORGANS: Anteverted uterus today's study. Few scattered small bilateral pelvic phleboliths miladis aterally redemonstrated. LYMPH NODES: No new greater than 1cm abdominal or pelvic lymph nodes are appreciated. OSSEOUS STRUCTURES: There is S-shaped scoliosis redemonstrated. OTHER: Mild to moderate calcified plaque of the aorta extends into branch vessels. IMPRESSION: Overall stable findings from most recent CT, No new or enlarging nodules or adenopathy to suggest active neoplastic recurrence .
== END | disposition home or self-care (01) ==
LOC: RADCTMAIN 09:15
PROVIDERS: ATTEND Internal Medicine Hematology & Oncology
DX: R51.9 Headache, unspecified (principal); Z85.118 Personal history of other malignant neoplasm of bronchus and lung; Z85.3 Personal history of malignant neoplasm of breast
CPT/HCPCS: 82565; 84520; 70460; 71260; 74177; 36415; Q9967 ×2

== ENCOUNTER → 2021-09-01 | Outpatient (CLI) | payer MEDICARE ==
[2021-09-01 10:43] LABS: African American GFR (CKD) >90 (>60 ml/min/1.73 sqM); Blood Urea Nitrogen 20 mg/dL (7-17); Non-African American GFR(CKD) 88 (>60 ml/min/1.73 sqM)
--- NOTE | 2021-09-01 12:16 | CT ---
EXAMINATION TYPE: CT ChestAbdPelvis w con DATE OF EXAM: 09/01/2021 COMPARISON: CT dated 06/08/2021 HISTORY: lung cancer CT DLP: 398.7 mGycm Automated exposure control for dose reduction was used. CONTRAST: CT scan of the chest, abdomen and pelvis is performed with Oral Contrast and with IV Contrast, patien t injected with 100ml mL of Isovue 300. FINDINGS: LUNGS: Slightly smaller yet persistent right-sided pleural effusion. The previously seen right lower lobe lateral area of consolidation with adjacent soft tissue thickening is slightly smaller currently measuring 16 x 19 mm compared to 20 x 28 mm previously. Underlying lung cancer at that location micheal ot be excluded. Stable right apical paraseptal emphysematous changes and minimal adjacent fibrotic ch anges. No definite new or progressive lung lesion. Patent trachea and main bronchi. No left-sided ple ural effusion. MEDIASTINUM: Unchanged heart, coronary and arterial atherosclerotic calcifications. No pericardial ef fusion. Stable prominent subcentimeter bilateral axillary and left internal mammary lymph nodes. No p rogressive lymphadenopathy in the chest. OTHER: Bilateral breast prosthesis. No aggressive bone lesion. LIVER/GB: No significant abnormality is appreciated. PANCREAS: No significant abnormality is seen. SPLEEN: Stable splenic calcifications. ADRENALS: Stable left adrenal lesion measuring 14 x 20 mm. Unremarkable right adrenal. KIDNEYS: No significant abnormality is seen. BOWEL: Unremarkable stomach and duodenum. Suboptimal assessment of the small and large bowel due to paucity of intra-abdominal fat. No evidence of bowel obstruction. Significant fecal loading of the co nir. Suspected colonic diverticulosis. REPRODUCTIVE ORGANS: No gross uterine or adnexal mass yet suboptimally assessed. LYMPH NODES: No greater than 1 cm abdominal or pelvic lymph nodes are appreciated. OSSEOUS STRUCTURES: Anterolisthesis of L4 over L5 with bilateral L4-5 facet osteoarthropathy. No aggr essive bone lesion. OTHER: Scattered arterial atherosclerotic calcifications. No sizable ascites. IMPRESSION: Smaller right pleural effusion and right lower lobe heterogeneous consolidation/soft tissue thickenin g. Stable left adrenal soft tissue nodule. No other evidence of metastatic disease seen in the chest, abdomen or the pelvis. Interval changes an d incidental findings as described above.
--- NOTE | 2021-09-01 20:01 | ECHOF ---
Referral Reason:C34.31 lung cancer, Z03.89 MEASUREMENTS -------- HEIGHT: 152.4 cm WEIGHT: 41.7 kg BP: RVIDd: 2.1 cm (< 3.3) IVSd: 0.6 cm (0.6 - 1.1) LVIDd: 3.2 cm (3.9 - 5.3) LVPWd: 0.7 cm (0.6 - 1.1) IVSs: 1.3 cm LVIDs: 1.9 cm LVPWs: 1.2 cm LAESV Index (A-L): 16.57 ml/m Ao Diam: 2.8 cm (2.0 - 3.7) AV Cusp: 1.8 cm (1.5 - 2.6) LA Diam: 2.2 cm (2.7 - 3.8) MV EXCURSION: 8.330 mm (> 18.000) MV EF SLOPE: 60 mm/s (70 - 150) EPSS: 0.9 cm MV E Brian: 0.75 m/s MV DecT: 195 ms MV A Brian: 0.71 m/s MV E/A Ratio: 1.05 AR PHT: 514 ms RAP: 5.00 mmHg RVSP: 13.38 mmHg TAPSE: 19.26 mm FINDINGS -------- This was a technically good study. The left ventricular size is normal. Left ventricular wall thickness is normal. Overall left vent ricular systolic function is normal with, an EF between 55 - 60 %. The diastolic filling pattern is normal for the age of the patient 10.65. The right ventricle is normal in size. The left atrial size is normal. Normal LA size by volume 22+/-6 ml/m2. The right atrial size is normal. Aortic valve is trileaflet and is mildly thickened. Trace amount of aortic regurgitation. The mitral valve is normal. The mitral valve leaflets are mildly thickened. Wsbk-hd-[id number] mitr al regurgitation is present. The tricuspid valve appears structurally normal. Mild tricuspid regurgitation present. Right vent ricular systolic pressure is normal at < 35 mmHg. There is no pulmonic regurgitation present. The aortic root size is normal. Normal inferior vena cava with normal inspiratory collapse consistent with estimated right atrial pre ssure of 5 mmHg. There is no pericardial effusion. CONCLUSIONS -------- 1. The left ventricular size is normal. 2. Left ventricular wall thickness is normal. 3. Overall left ventricular systolic function is normal with, an EF between 55 - 60 %. 4. The diastolic filling pattern is normal for the age of the patient 10.65 5. Aortic valve is trileaflet and is mildly thickened. 6. Trace amount of aortic regurgitation. 7. The mitral valve leaflets are mildly thickened. 8. Kutn-zk-ioelbahe mitral regurgitation is present. 9. Mild tricuspid regurgitation present. 10. There is no pericardial effusion. BELL VALET: Ani Smith RDCS
== END | disposition home or self-care (01) ==
LOC: RADCTMAIN 09:27
PROVIDERS: ATTEND Internal Medicine Hematology & Oncology
DX: Z01.818 Encounter for other preprocedural examination (principal); C34.31 Malignant neoplasm of lower lobe, right bronchus or lung; I08.3 Combined rheumatic disorders of mitral, aortic and tricuspid valves
CPT/HCPCS: 93306; 82565; 84520; 71260; 74177; 36415; Q9967

== ENCOUNTER → 2022-02-18 | Outpatient (CLI) | payer MEDICARE ==
[2022-02-18 12:45] LABS: African American GFR (CKD) >90 (>60 ml/min/1.73 sqM); Blood Urea Nitrogen 24 mg/dL (7-17); Non-African American GFR(CKD) 85 (>60 ml/min/1.73 sqM)
--- NOTE | 2022-02-18 13:51 | CT ---
EXAMINATION TYPE: CT ChestAbdPelvis w con DATE OF EXAM: 02/18/2022 COMPARISON: HISTORY: Lung cancer CT DLP: 634 mGycm Automated exposure control for dose reduction was used. CONTRAST: CT scan of the chest, abdomen and pelvis is performed with Oral Contrast and with IV Contrast, patien t injected with 70 mL of Isovue 300. FINDINGS: CT chest: Ill-defined lung mass in the right lung base is again seen and appears to have decreased in size slig htly in the interval. Previously measured approximately 23 mm now measures approximately 19mm. The ri ght pleural effusion seen previously has also decreased in size and is moderate on the current study. No new lung masses are seen. There are mild emphysematous changes predominantly in the upper lobes. There is no left pleural effusion. The great vessels the chest are normal and there is no mediastinal, hilar or axillary adenopathy. There are bilateral breast implants. The osseous structures of the thorax are intact lytic or blastic osseous abnormality. CT abdomen and pelvis: There is no liver mass or biliary ductal dilatation. The gallbladder is normal. The pancreas is prominent in size but is stable compared to previous. There is no splenic mass or spl enomegaly. The left adrenal mass measuring 22 mm is again seen and is stable. There is no right adrenal mass. Caliber the abdominal aorta is normal is no retroperitoneal adenopathy or hemorrhage. The kidneys enh ance symmetrically and there is no solid renal mass or process. The bowel loops are normal in caliber and there is no evidence of obstruction. No inflammatory change s are identified in the bowel wall or mesentery. There is no free intraperitoneal air or fluid. The urinary bladder is markedly distended. There is no pelvic adenopathy. The osseous structures are intact. IMPRESSION: 1. Right lower lobe lung mass and right pleural effusion both of which appear to have decreased in si ze in interval since the prior study. 2. No evidence of metastatic disease within the abdomen or pelvis. The urinary bladder is markedly di stended. 3. Stable left adrenal mass.
--- NOTE | 2022-02-19 09:58 | CA ---
Transthoracic Echo Report Name: Judy Salomon Age: 71 Gender: F : 1950 Exam Date: 02/18/2022 12:02 Exam Location: [facility] Ht (in): 60 Wt (lb): 91 Ordering Physician: Kan Harley MD Attending/Referring Phys: Turf Farm Worker Allison Milian RDCS Procedure CPT: Indications: U92624, C34.12 Lung CA Cardiac Hx: Technical Quality: Fair Contrast 1: Total Dose (mL): Contrast 2: Total Dose (mL): MEASUREMENTS (Male / Female) Normal Values 2D ECHO LV Diastolic Diameter PLAX 3.3 cm 4.2 - 5.9 / 3.9 - 5.3 cm LV Systolic Diameter PLAX 2.1 cm IVS Diastolic Thickness 0.8 cm 0.6 - 1.0 / 0.6 - 0.9 cm LVPW Diastolic Thickness 1.1 cm 0.6 - 1.0 / 0.6 - 0.9 cm LV Relative Wall Thickness 0.6 RV Internal Dim ED PLAX 2.6 cm LA Volume 32.8 cm??? 18 - 58 / 22 - 52 cm??? M-MODE Aortic Root Diameter MM 2.9 cm AV Cusp Separation MM 1.1 cm DOPPLER AV Peak Velocity 118.6 cm/s AV Peak Gradient 5.6 mmHg AI Peak Velocity 329.0 cm/s AI Peak Gradient 43.3 mmHg AI Pressure Half Time 1408.4 ms MV Area PHT 4.0 cm??? Mitral E Point Velocity 110.2 cm/s Mitral A Point Velocity 104.4 cm/s Mitral E to A Ratio 1.1 MV Deceleration Time 187.4 ms TR Peak Velocity 219.5 cm/s TR Peak Gradient 19.3 mmHg Right Ventricular Systolic Press 24.3 mmHg FINDINGS Left Ventricle Mildly increased posterior wall thickness. Normal left ventricular systolic function with no obvious regional wall motion abnormalities. Left ventricular ejection fraction is estimated at 55-60 %. Right Ventricle Normal right ventricular size. Right Atrium Normal right atrial size. Left Atrium Normal left atrial size. No evidence for an atrial septal defect. Mitral Valve Mitral valve thickened. Mild mitral annular calcification. Mild mitral regurgitation. Aortic Valve No aortic stenosis. Aortic valve sclerosis. Trace to mild aortic regurgitation. Tricuspid Valve Mild tricuspid regurgitation. Pulmonic Valve Trace pulmonic regurgitation. Pericardium No pericardial effusion. Aorta Normal size aortic root and proximal ascending aorta. CONCLUSIONS Normal left ventricular dimension and systolic function No significant valvular abnormalities Previewed by: Dr. Ar Mcclendon MD (Electronically Signed) Final Date: 19 February 2022 09:57
== END | disposition home or self-care (01) ==
LOC: RADCTMAIN 11:40
PROVIDERS: ATTEND Internal Medicine Hematology & Oncology
DX: Z01.818 Encounter for other preprocedural examination (principal); C34.12 Malignant neoplasm of upper lobe, left bronchus or lung
CPT/HCPCS: 93306; 82565; 84520; 71260; 74177; 36415; Q9967 ×2

== ENCOUNTER → 2022-11-02 | Outpatient (CLI) | payer MEDICARE ==
--- NOTE | 2022-11-02 17:07 | CA ---
Transthoracic Echo Report Name: Judy Salomon Age: 72 Gender: F : 1950 Exam Date: 11/02/2022 11:22 Exam Location: [facility] Ht (in): 60 Wt (lb): 93 Ordering Physician: Kan Harley MD Attending/Referring Phys: Facility Maintenance Technician Mariposa Che RDCS Procedure CPT: Indications: Z01.818 ENCOUNTER FOR OTHER PREPROCEDURAL EXAMINAT Cardiac Hx: Technical Quality: Good Contrast 1: Total Dose (mL): Contrast 2: Total Dose (mL): MEASUREMENTS (Male / Female) Normal Values 2D ECHO LV Diastolic Diameter PLAX 3.3 cm 4.2 - 5.9 / 3.9 - 5.3 cm LV Systolic Diameter PLAX 2.0 cm IVS Diastolic Thickness 0.9 cm 0.6 - 1.0 / 0.6 - 0.9 cm LVPW Diastolic Thickness 0.9 cm 0.6 - 1.0 / 0.6 - 0.9 cm LV Relative Wall Thickness 0.5 RV Internal Dim ED PLAX 2.6 cm LA Volume 32.5 cm??? 18 - 58 / 22 - 52 cm??? M-MODE Aortic Root Diameter MM 3.1 cm LA Systolic Diameter MM 3.1 cm LA Ao Ratio MM 1.0 DOPPLER AV Peak Velocity 140.5 cm/s AV Peak Gradient 7.9 mmHg Mitral E Point Velocity 89.1 cm/s Mitral A Point Velocity 88.0 cm/s Mitral E to A Ratio 1.0 MV Deceleration Time 280.1 ms MV E' Velocity 7.4 cm/s Mitral E to MV E' Ratio 12.0 TR Peak Velocity 215.5 cm/s TR Peak Gradient 18.6 mmHg Right Ventricular Systolic Press 28.8 mmHg FINDINGS Left Ventricle Left ventricular ejection fraction is estimated at 60-65 %. Small left ventricular cavity. Left ventricular wall thickness normal. Normal LV systolik strain Right Ventricle Normal right ventricular size and function. Right ventricular systolic pressure within normal limits. Right ventricular systolic pressure estimated at 29 mm hg. Right Atrium Normal right atrial size. Left Atrium Normal left atrial size. Mitral Valve Mitral valve thickened. Trace mitral regurgitation. Aortic Valve Trileaflet aortic valve. No aortic valve stenosis or regurgitation. Aortic valve sclerosis. Tricuspid Valve Structurally normal tricuspid valve. Mild tricuspid regurgitation. Pulmonic Valve Structurally normal pulmonic valve. No pulmonic regurgitation. Pericardium Normal pericardium. No pericardial effusion. Aorta Normal size aortic root and proximal ascending aorta. CONCLUSIONS Normal LV systolic function Previewed by: Dr. Bran Jones MD (Electronically Signed) Final Date: 02 Nov 2022 17:06
== END | disposition home or self-care (01) ==
LOC: RADECHMAIN 10:59
PROVIDERS: ATTEND Internal Medicine Hematology & Oncology
DX: Z01.818 Encounter for other preprocedural examination (principal); C34.31 Malignant neoplasm of lower lobe, right bronchus or lung; R74.01 Elevation of levels of liver transaminase levels; E78.5 Hyperlipidemia, unspecified
CPT/HCPCS: 93306

== ENCOUNTER → 2023-03-10 | Outpatient (CLI) | payer MEDICARE ==
--- NOTE | 2023-03-11 11:03 | CA ---
Transthoracic Echo Report Name: Judy Salomon Age: 72 Gender: F : 1950 Exam Date: 03/10/2023 16:10 Exam Location: [facility] Ht (in): 61 Wt (lb): 90 Ordering Physician: Kan Harley MD Attending/Referring Phys: Inside Sales Representative Allison Milian RDCS Procedure CPT: Indications: Z01.818 pre chemo Cardiac Hx: Technical Quality: Fair Contrast 1: Total Dose (mL): Contrast 2: Total Dose (mL): MEASUREMENTS (Male / Female) Normal Values 2D ECHO LV Diastolic Diameter PLAX 2.6 cm 4.2 - 5.9 / 3.9 - 5.3 cm LV Systolic Diameter PLAX 1.5 cm IVS Diastolic Thickness 1.1 cm 0.6 - 1.0 / 0.6 - 0.9 cm LVPW Diastolic Thickness 1.2 cm 0.6 - 1.0 / 0.6 - 0.9 cm LV Relative Wall Thickness 0.9 RV Internal Dim ED PLAX 2.7 cm LVOT Diameter 1.7 cm LA Volume 29.3 cm??? 18 - 58 / 22 - 52 cm??? LA Volume Index 22.2 cm???/m??? 16 - 28 cm???/m??? M-MODE Aortic Root Diameter MM 2.8 cm LA Systolic Diameter MM 2.8 cm LA Ao Ratio MM 1.0 AV Cusp Separation MM 1.2 cm DOPPLER AV Peak Velocity 146.8 cm/s AV Peak Gradient 8.6 mmHg AV Mean Velocity 103.0 cm/s AV Mean Gradient 4.8 mmHg AV Velocity Time Integral 29.0 cm LVOT Peak Velocity 102.5 cm/s LVOT Peak Gradient 4.2 mmHg LVOT Velocity Time Integral 21.1 cm LVOT Stroke Volume 47.8 cm??? LVOT Stroke Volume Index 35.5 ml/m??? LVOT Cardiac Index 2575.6 cm???/min???m??? AV Area Cont Eq vti 1.6 cm??? AV Area Cont Eq pk 1.6 cm??? MV Area PHT 2.9 cm??? Mitral E Point Velocity 78.9 cm/s Mitral A Point Velocity 99.9 cm/s Mitral E to A Ratio 0.8 MV Deceleration Time 260.6 ms MV E' Velocity 7.1 cm/s Mitral E to MV E' Ratio 11.2 TR Peak Velocity 196.6 cm/s TR Peak Gradient 15.5 mmHg Right Ventricular Systolic Press 19.9 mmHg FINDINGS Left Ventricle Mildly increased left ventricular wall thickness. Left ventricular cavity size normal. Normal left ventricular systolic function with no obvious regional wall motion abnormalities. Left ventricular ejection fraction is estimated at 55-60 %. Right Ventricle Normal right ventricular size and function. Right ventricular systolic pressure within normal limits. Right Atrium Normal right atrial size. Left Atrium Normal left atrial size. Mitral Valve Structurally normal mitral valve. Mild thickening/calcification of the anterior mitral valve leaflet. Mild mitral annular calcification. Trace mitral regurgitation. Aortic Valve Trileaflet aortic valve. Mild aortic insufficiency Tricuspid Valve Structurally normal tricuspid valve. Mild tricuspid regurgitation. Pulmonic Valve Trace pulmonic regurgitation. Pericardium No pericardial effusion. Aorta Normal size aortic root and proximal ascending aorta. CONCLUSIONS Normal LV systolic function Aortic sclerosis with mild aortic insufficiency Mitral annular calcification Previewed by: Dr. Ar Mcclendon MD (Electronically Signed) Final Date: 11 March 2023 11:02
== END | disposition home or self-care (01) ==
LOC: RADECHMAIN 16:07
PROVIDERS: ATTEND Internal Medicine Hematology & Oncology
DX: Z01.818 Encounter for other preprocedural examination (principal); I08.0 Rheumatic disorders of both mitral and aortic valves; C34.31 Malignant neoplasm of lower lobe, right bronchus or lung; E78.5 Hyperlipidemia, unspecified; Z71.3 Dietary counseling and surveillance
CPT/HCPCS: 93306

== ENCOUNTER → 2023-05-01 | Outpatient (CLI) | payer MEDICARE ==
[2023-05-01 13:51] LABS: African American GFR (CKD) >90 (>60 ml/min/1.73 sqM); Blood Urea Nitrogen 26 mg/dL (7-17); Non-African American GFR(CKD) >90 (>60 ml/min/1.73 sqM)
--- NOTE | 2023-05-01 14:36 | CT ---
EXAMINATION TYPE: CT ChestAbdPelvis w con DATE OF EXAM: 05/01/2023 COMPARISON: Prior CT December 23, 2022 and older studies HISTORY: f/u lung ca CT DLP: 380.6 mGycm. Automated Exposure Control for Dose Reduction was Utilized. CONTRAST: CT scan of the thorax, abdomen and pelvis is performed with IV Contrast, patient injected with 100 mL of Isovue 300. FINDINGS: LUNGS: Background Mild underlying emphysematous change is redemonstrated. Persistent small to tiny si ze right-sided pleural effusion. Associated right basilar masslike opacity favors compressive atelect asis with more central mild to moderate bronchiectasis h2as similar appearance to prior in the right lower lobe is redemonstrated adjacent to some nondependent pleural fluid similar to most recent studi es. Underlying mass or neoplasm having heterogeneity with low dense component is not entirely exclude d though favor posttreatment change. No new or enlarging nodules clearly seen. MEDIASTINUM: There are no new greater than 1 cm hilar or mediastinal lymph nodes. No cardiomegaly o r pericardial effusion is seen. Three-vessel coronary artery calcification and/or stents are redemon strated. Other: Bilateral breast implants are redemonstrated. LIVER/GB: Prominent right hepatic lobe and/or hepatomegaly is redemonstrated. PANCREAS: No significant abnormality is seen. SPLEEN: Scattered calcifications consistent with old granulomatous disease are redemonstrated. ADRENALS: Nonspecific 2.8 x 2.2 cm left adrenal mass axial image 52 is perhaps slightly larger from p rior studies. KIDNEYS: No hydronephrosis seen bilaterally. BOWEL: Oral contrast does not reach level of the hepatic flexure on the current study making evaluati on of distal bowel suboptimal. Evaluation also suboptimal as patient has little internal fat. No joaquín picious small or large bowel dilatation. Low-lying cecum into the anterior right pelvis is redemonstr ated. Mild to moderate colonic fecal prominence is redemonstrated. GENITAL ORGANS: Anteverted uterus today's study. Few scattered small bilateral pelvic phleboliths miladis aterally are redemonstrated. LYMPH NODES: No new greater than 1cm abdominal or pelvic lymph nodes are appreciated. OSSEOUS STRUCTURES: There is S-shaped scoliosis redemonstrated. OTHER: Mild to moderate calcified plaque of the aorta extends into branch vessels. IMPRESSION: Slightly more prominent left adrenal mass is concerning for neoplastic involvement given history of lung cancer. Consider adrenal protocol CT or MRI to further evaluate or possibly PET/CT ev aluation. Stable small right-sided pleural fluid collection. Posttreatment changes right lung redemon strated. No new or enlarging nodules noted.
== END | disposition home or self-care (01) ==
LOC: RADCTMAIN 04-18 12:40
PROVIDERS: ATTEND Internal Medicine Hematology & Oncology
DX: C34.31 Malignant neoplasm of lower lobe, right bronchus or lung (principal); E78.5 Hyperlipidemia, unspecified; R74.01 Elevation of levels of liver transaminase levels; E27.9 Disorder of adrenal gland, unspecified; Z71.3 Dietary counseling and surveillance
CPT/HCPCS: 82565; 84520; 71260; 74177; 36415; Q9967

== ENCOUNTER → 2023-07-27 | Outpatient (CLI) | payer MEDICARE ==
--- NOTE | 2023-07-27 20:18 | PE ---
EXAMINATION TYPE: PET CT fusion skull to thigh DATE OF EXAM: 07/27/2023 CLINICAL INDICATION:Female, 73 years old with history of C34.31 LUNG CANCER; TECHNIQUE: Following the intravenous administration of 12.94 mCi of F-18 FDG, whole body images are performed from the skull base to the midthigh. Images are reviewed on the computer in the coronal, axial, and sagittal planes. Reconstructed rotating images are created on independent workstation and reviewed on the computer. A non-contrast CT is performed in conjunction with the PET scan. Glucose level 91 mg/dL CT DLP: 153.2 mGycm, Automated exposure control for dose reduction was used. COMPARISON: CT 05/01/2023, PET/CT 12/21/2019, FINDINGS: Mediastinal SUV mean is 1.8. Hepatic parenchyma SUV mean is 2.2. SKULL BASE AND NECK: No suspicious radiotracer activity. CHEST, MEDIASTINUM, AND HILAR REGION: * FDG avid right pulmonary hilum lymph node max SUV 8.2, new from prior. * Along atelectasis/consolidation change in the right lung base there is an additional tiny focus of uptake measuring Max SUV 4.2. * Right low paratracheal lymph node max SUV 4.2. * Mild uptake in the subcutaneous carinal region max SUV 4.0. * Right lower lung consolidation without abnormal uptake. * Trace right pleural effusion. ABDOMEN AND PELVIS: * Left adrenal nodule low levels of uptake max SUV 2.6. Measuring approximately 16 x 17 mm which is not significantly changed dating back to at least 09/01/2021. * Mild uptake within the zenon hepatis max SUV 3.5 previously 2.8 MUSCULOSKELETAL STRUCTURES: No suspicious radiotracer activity. OTHER CT: Atherosclerosis of the carotid bifurcations. Bilateral breast implants appear intact. Trace right pleural effusion. The heart is mildly enlarged for size. The coronary arteries demonstrate ath erosclerosis. Nonobstructing right renal calculus measuring up to 4 mm. IMPRESSION: 1. Right pulmonary hilum FDG avid lymph node as well as smaller lymph nodes with increased uptake an d 2 small foci of within the right lower lobe suspicious for metastatic disease. 2. Left adrenal nodule with low levels FDG activity this is not felt to be different compared to mul tiple priors given differences in technique.
== END | disposition home or self-care (01) ==
LOC: RADPETMAIN 11:28
PROVIDERS: ATTEND Internal Medicine Hematology & Oncology
DX: C34.31 Malignant neoplasm of lower lobe, right bronchus or lung (principal); E27.8 Other specified disorders of adrenal gland
CPT/HCPCS: 78815; A9552

== ENCOUNTER → 2023-08-16 | Outpatient (CLI) | payer MEDICARE ==
--- NOTE | 2023-08-16 12:10 | MR ---
EXAMINATION TYPE: MR brain wo/w con DATE OF EXAM: 08/16/2023 11:49 AM CLINICAL INDICATION:Female, 73 years old with history of C34.31 HAMLET OF LOWER LOBE; PHH, Lung ca, mets COMPARISON: 08/30/2019 TECHNIQUE: Multi planar, multi sequence imaging was performed through the brain including: T1, T2, In version recovery, susceptibility weighted imaging and gradient echo imaging and Diffusion weighted im aging. The patient was then given intravenous contrast and multi planar, T1 fat-saturation images wer e obtained. IV Contrast: 4.5 cc Gadavist FINDINGS: The morrell-white junctions, ventricular system, basal cisterns appear unremarkable. Diffusion-weighted imaging shows no evidence of restricted diffusion to suggest acute/subacute infarct. Intracranial ar terial flow voids are maintained. Midline structures show no abnormality. Scattered foci of high T2 s ignal intensity are seen within the periventricular white matter. The susceptibility weighted images do not reveal any evidence for micro-hemorrhage. After administration of gadolinium, no abnormal enha ncement is seen. The bone marrow signal is within normal limits. Paranasal sinuses and mastoid air cells: No significant paranasal sinus disease. Visualized orbits: Orbital contents are intact. IMPRESSION: 1. No evidence for metastatic disease, No evidence of intracranial mass, acute/subacute infarct, or a bnormal enhancement. 2. Nonspecific white matter changes, likely related to small vessel ischemic disease.
== END | disposition home or self-care (01) ==
LOC: RADMRIMAIN 10:36
PROVIDERS: ATTEND Internal Medicine Hematology & Oncology
DX: C34.31 Malignant neoplasm of lower lobe, right bronchus or lung (principal)
CPT/HCPCS: 70553; A9585

== ENCOUNTER 2023-08-25 06:43 | Day surgery (SDC) | payer MEDICARE ==
[2023-08-23 09:41] VITALS: BMI 18.0
[~2023-08-25 06:43] MED LIST changes: -ATROPINE SULFATE 0.4 MG/ML 1 ML VIAL IM ONE; -DEXAMETHASONE SOD PHOSPHATE 10 MG/ML 1 ML VIAL IV ONE; +HYDROmorphone 0.5 MG/0.5 ML SYRINGE IVP PRN; +LIDOCAINE 1% (10MG/ML) FOR IV START INTRADERMA PRN; -LIDOCAINE 1% 20 ML VIAL (10MG/ML) FOR IV START INTRADERMA PRN; -LIDOCAINE VISCOUS 2% 15 ML CUP MUCOUS MEM ONE; -MIDAZOLAM (PF) 2 MG/2 ML VIAL IV PRN; +MIDAZOLAM 2 MG/2 ML VIAL IV PRN; -SODIUM CHLORIDE 0.9% 1,000 ML IV ONE; -fentaNYL (PF) 50 MCG/ML 2 ML AMP IV PRN
[2023-08-25] MEDS: LACTATED RINGERS 1,000 ML IV ONE (07:04)
[2023-08-25] MEDS: ONDANSETRON 4 MG/2 ML VIAL IVP ONE (07:19)
[2023-08-25] MEDS: DEXAMETHASONE SOD PHOSPHATE 4 MG/ML 1 ML VIAL IV ONE (07:19)
[2023-08-25] MEDS ORDERED: ROCURONIUM 10 MG/ML (5 ML VIAL) IV ONE (08:14)
[2023-08-25] MEDS ORDERED: PHENYLEPHRINE-0.9% NACL SYG 1,000 MCG/10 ML SYRINGE ONE (08:14)
[2023-08-25] MEDS ORDERED: MIDAZOLAM 2 MG/2 ML VIAL ONE (08:14)
[2023-08-25] MEDS ORDERED: PROPOFOL 10 MG/ML 20 ML VIAL IV ONE (08:14)
[2023-08-25] MEDS ORDERED: LIDOCAINE 1% INJ 10MG/ML (20 ML MDV) ONE (08:14)
[2023-08-25] MEDS ORDERED: SUCCINYLCHOLINE CHLORIDE 200 MG/10 ML VIAL IV ONE (08:14)
[2023-08-25] MEDS ORDERED: fentaNYL (PF) 50 MCG/ML 2 ML AMP ONE (08:14)
[2023-08-25] MEDS: SODIUM CHLORIDE 0.9% 500 ML 500 ML IV ONE (09:15)
--- NOTE | 2023-08-25 09:19 | P.PCN ---
Date of Procedure: 08/25/23 Preoperative Diagnosis: This adenocarcinoma of the mediastinal lymphadenopathy, rule out recurrence Postoperative Diagnosis: Same Procedure(s) Performed: Endobronchial ultrasound and transbronchial needle aspirate of right hilar and subcarinal lymph nodes. Anesthesia: RADHAA Surgeon: Rodrigo Mcconnell Estimated Blood Loss (ml): 0 Pathology: other Condition: stable Disposition: same day Operative Findings: After obtaining the consent the patient was taken to the OR suite he was intubated and put on MV by anesthesia then the scope was advanced to the ET tube until the Trachea was seen and it was normal and then the arpit appears normal then the scope advanced to the left main and OG LB1-LB3 were seen and no endobronchial lesions were seen then the scope advanced to the lingula and the LB4 and LB5 were seen and no endobronchial lesions were seen the scope retracted and advanced to the left lower lobes LB6 to LB12 were seen one by one and no endobronchial lesions, then the scope was retracted back to the arpit and advanced to the Right main and RUL RB1 and RB2 and RB3 were seen one by one and no endobronchial lesions were seen the scope then retracted and advanced to the BI and RML RB4 and RB5 were seen and no endobronchial lesions were seen then it was retracted and advanced to the RLL RB6 to RB12 were seen one by one and no endobronchial lesions. Then EBUS was used and the lymph nodes were examined. Direct measurement of the mediastinal lymph nodes revealed 1 cm right hilar station 10 R lymph node and 1 cm subcarinal lymph node station 7. Using a 22-gauge vizishot, transbronchial needle aspirate of the mediastinal stations were done and a total of 3 passes were obtained from each station. No complications. No bleeding. Rest of the mediastinal stations revealed no significant or pathologic lymphadenopathy. The endobronchial ultrasound was removed after completing the procedure. Flexor bronchoscope was inserted on the airway was cleared from any respiratory secretions. The flexible bronchoscope was removed and the patient was extubated and transferred to recovery in stable condition.
[2023-08-25 09:33] VITALS: RESP 16; TEMP 96.8
[2023-08-25 10:44] VITALS: BP 139/78; PULSE 74
== END 2023-08-25 10:35 | disposition home or self-care (01) ==
LOC: ORWHC2ENDO 06:43
PROVIDERS: ATTEND Internal Medicine Critical Care Medicine
DX: R59.0 Localized enlarged lymph nodes (principal); J44.9 Chronic obstructive pulmonary disease, unspecified; E78.5 Hyperlipidemia, unspecified; N20.0 Calculus of kidney; J44.1 Chronic obstructive pulmonary disease with (acute) exacerbation; H04.129 Dry eye syndrome of unspecified lacrimal gland; Z98.51 Tubal ligation status; Z98.891 History of uterine scar from previous surgery
CPT/HCPCS: 88305; 31624; 31652; J2250; J0330; J1100; J2405; J2001; J3010; J2704; J2371

== ENCOUNTER → 2023-10-27 | Outpatient (CLI) | payer MEDICARE ==
--- NOTE | 2023-10-29 08:35 | PE ---
EXAMINATION TYPE: PET CT fusion skull to thigh DATE OF EXAM: 10/27/2023 CLINICAL INDICATION:Female, 73 years old with history of C34.31 MALIGNANT NEOPLASM OF LOWER LOBE, RIG HT BRO; TECHNIQUE: Following the intravenous administration of 12.03 mCi of F-18 FDG, whole body images are performed from the skull base to the midthigh. Images are reviewed on the computer in the coronal, axial, and sagittal planes. Reconstructed rotating images are created on independent workstation and reviewed on the computer. A non-contrast CT is performed in conjunction with the PET scan. Glucose level 94 mg/dL CT DLP: 151.72 mGycm, Automated exposure control for dose reduction was used. COMPARISON: CT None, PET/CT 07/27/2023, FINDINGS: Mediastinal SUV mean is 1.6. Hepatic parenchyma SUV mean is 2.0. SKULL BASE AND NECK: No suspicious radiotracer activity. CHEST, MEDIASTINUM, AND HILAR REGION: * FDG avid right pulmonary hilum lymph node max SUV 3.9, previously 8.2. * Atelectasis/consolidation change in the right lung base there is an additional tiny focus of uptak e measuring Max SUV 2.0, previously 4.2. * Right low paratracheal lymph node max SUV 2.5, previously 4.2. * Mild uptake in the subcarinal region max SUV 2.3, previously 4.0. * Right lower lung consolidation without abnormal uptake. * Trace right pleural effusion. ABDOMEN AND PELVIS: No suspicious radiotracer activity. * Left adrenal nodule low levels of uptake max SUV 2.1, previously 2.6. Measuring approximately 16 x 17 mm which is not significantly changed dating back to at least 09/01/2021. * Mild uptake within the zenon hepatis max is not well visualized due to some motion and low-dose te chnique. MUSCULOSKELETAL STRUCTURES: No suspicious radiotracer activity. OTHER CT: Atherosclerosis of the carotid bifurcations. Bilateral breast implants appear intact. Trace right pleural effusion. The heart is mildly enlarged for size. The coronary arteries demonstrate ath erosclerosis. Nonobstructing right renal calculus measuring up to 4 mm. IMPRESSION: 1. Decrease in metabolic activity of the mediastinal lymph nodes and right lower lung nodule. No new areas of uptake. 2. Left adrenal nodule with low levels FDG activity this is not felt to be different compared to mul tiple priors given differences in technique.
== END | disposition home or self-care (01) ==
LOC: RADPETMAIN 07:59
PROVIDERS: ATTEND Internal Medicine Hematology & Oncology
DX: C34.31 Malignant neoplasm of lower lobe, right bronchus or lung (principal); E27.8 Other specified disorders of adrenal gland
CPT/HCPCS: 78815

== ENCOUNTER → 2024-02-29 | Outpatient (CLI) | payer MEDICARE ==
--- NOTE | 2024-03-02 11:49 | PE ---
EXAMINATION TYPE: PET CT fusion skull to thigh DATE OF EXAM: 02/29/2024 CLINICAL INDICATION:Female, 73 years old with history of C34.31 LUNG CANCER; TECHNIQUE: Following the intravenous administration of 12.62 mCi of F-18 FDG, whole body images are performed from the skull base to the midthigh. Images are reviewed on the computer in the coronal, axial, and sagittal planes. Reconstructed rotating images are created on independent workstation and reviewed on the computer. A non-contrast CT is performed in conjunction with the PET scan. Glucose level 96 mg/dL CT DLP: 145 mGycm, Automated exposure control for dose reduction was used. COMPARISON: CT None, PET/CT 10/29/2023, MRI: None FINDINGS: Mediastinal SUV mean is 1.8. Hepatic parenchyma SUV mean is 2.0. SKULL BASE AND NECK: No suspicious radiotracer activity. CHEST, MEDIASTINUM, AND HILAR REGION: * FDG avid right pulmonary hilum lymph node max SUV 6.8, previously 3.9, 8.2. * Atelectasis/consolidation change in the right lung base there is an additional tiny focus of uptak e measuring Max SUV 3.4, previously 2.0, 4.2. * Right low paratracheal lymph node max SUV 2.5, previously 4.2. * Mild uptake in the subcarinal region max SUV 2.3, previously 4.0. * Uptake in the left axillary near the chest wall max SUV 2.8 not definitively seen on prior * Right lower lung consolidation without abnormal uptake. * Trace right pleural effusion. ABDOMEN AND PELVIS: * Left adrenal nodule low levels of uptake max SUV 2.8, previously 2.1, 2.6. Measuring approximately 16 x 17 mm which is not significantly changed dating back to at least 09/01/2021. * Mild uptake max SUV 4.3 within the zenon hepatis max is not well visualized due to some motion and low-dose technique. MUSCULOSKELETAL STRUCTURES: No suspicious radiotracer activity. OTHER CT: Atherosclerosis of the carotid bifurcations. Bilateral breast implants appear intact. Trace right pleural effusion. The heart is mildly enlarged for size. The coronary arteries demonstrate ath erosclerosis. Nonobstructing right renal calculus measuring up to 4 mm. IMPRESSION: 1. Progression of disease with increasing metabolic activity of right pulmonary hilar lymph node in the zenon hepatis focus of uptake, 2. New left chest wall focus of abnormal uptake just superficial to low wall at 4-5 o'clock in the l eft breast. Consider mammographic ultrasound workup. 3. Right inferior lung focus of uptake possibly infectious/inflammatory process. 4. Left adrenal nodule with low levels FDG activity this is not felt to be different compared to mul abby priors given differences in technique. [facility], , 03/02/2024 11:47 AM
== END | disposition home or self-care (01) ==
LOC: RADPETMAIN 11:33
PROVIDERS: ATTEND Internal Medicine Hematology & Oncology
DX: C34.31 Malignant neoplasm of lower lobe, right bronchus or lung
CPT/HCPCS: 78815

== ENCOUNTER → 2024-03-20 | Outpatient (CLI) | payer MEDICARE ==
--- NOTE | 2024-03-20 09:30 | MM ---
Reason for Exam: Clinical finding. Last mammogram was performed 21 year(s) and 6 month(s) ago. Patient History: Menarche at age 15. First Full-Term at age 25. Postmenopausal. Other cancer. Bilateral Implants. Maternal aunt had breast cancer. Maternal aunt had breast cancer. Maternal aunt had breast cancer. Risk Values: Jennifer 5 year model risk: 1.6%. NCI Lifetime model risk: 4.3%. Tissue Density: There are scattered areas of fibroglandular density. Findings: No finding on mammography to correlate with finding on PET. It is felt to be out of the [id number]. Bilateral breast implants appear intact. No finding on mammography to correlate with finding on PET. It is felt to be out of the [id number]. Overall Assessment: Incomplete: need additional imaging evaluation, BI-RAD 0 Management: Diagnostic Breast Ultrasound of the left breast. Results were given to the patient verbally at the time of exam. Patient should continue monthly self-breast exams. A clinical breast exam by your physician is recommended on an annual basis. This exam should not preclude additional follow-up of suspicious palpable abnormalities. Note on Jennifer scores and lifetime risk: 1. A Jennifer score greater than 3% is considered moderate risk. If this is the case, consider specialist referral to assess eligibility for a risk reducing agent. 2. If overall lifetime risk for the development of breast cancer is 20% or higher, the patient may qualify for future screening with alternating mammogram and breast MRI. [facility], , 03/20/2024 9:20 AM. Electronically signed and approved by: Tylor Jauregui DO
--- NOTE | 2024-03-20 10:16 | USB ---
Reason for Exam: High risk patient. Patient History: Menarche at age 15. First Full-Term at age 25. Postmenopausal. Other cancer. Bilateral Implants. Maternal aunt had breast cancer. Maternal aunt had breast cancer. Maternal aunt had breast cancer. Risk Values: Jennifer 5 year model risk: 1.6%. NCI Lifetime model risk: 4.3%. Technique: Method: Targeted. Prior Study Comparison: 09/24/2002 Bilateral Diagnostic Mammogram, [facility]. Findings: The lower outer quadrant of the left breast, the axilla of the left breast and the retroareolar of the left breast were scanned. Technique utilized:US breast limited LT Image; Ultrasound imaging of: All 4 quadrants, the retroareolar region and axilla. Multiple areas of masslike soft tissue in the axillary tail lesion not have PET/CT correlate. Area on pet/CT in the inferior lateral aspect to be around 4-5 o'clock is not definitively an ultrasound correlate. Further evaluation with breast MRI recommended. Overall Assessment: Negative, BI-RAD 1 Management: Diagnostic Breast MRI of the left breast. No finding to definitively correlate with PET/CT. Other abnormalities are present in the axilla possibly representing postsurgical change. Further evaluation with MRI recommended recommended to evaluate area on pet/CT.. A clinical breast exam by your physician is recommended on an annual basis and results should be correlated with mammographic findings. This exam should not preclude additional follow-up of suspicious palpable abnormalities. Results were given to the patient verbally at the time of exam. [facility], , 03/20/2024 10:04 AM. Electronically signed and approved by: Tylor Jauregui DO
== END | disposition home or self-care (01) ==
LOC: RADMAMWWP 08:45
PROVIDERS: ATTEND Internal Medicine Hematology & Oncology
CPT/HCPCS: 77062; 77066

== ENCOUNTER → 2024-07-01 | Outpatient (CLI) | payer MEDICARE ==
[2024-07-01 10:39] LABS: African American GFR (CKD) >90 (>60 ml/min/1.73 sqM); Blood Urea Nitrogen 25 mg/dL (7-17); Non-African American GFR(CKD) 90 (>60 ml/min/1.73 sqM)
--- NOTE | 2024-07-01 13:01 | CT ---
EXAMINATION TYPE: CT ChestAbdPelvis w con DATE OF EXAM: 07/01/2024 11:44 AM COMPARISON: PET/CT 02/29/[address] 05/01/2023 CLINICAL INDICATION: Female, 74 years old with history of C34.31 lung ca, lung ca obs for mets, TECHNIQUE: Contiguous axial scanning of the chest, abdomen, and pelvis performed with IV Contrast, pa tient injected with 80ml mL of Isovue 300. Delayed images through the kidneys were obtained. Coronal/ sagittal reconstructions performed. CT DLP: 399.90 mGycm, Automated exposure control for dose reduction was used. FINDINGS: Chest: Bilateral breast reconstructions. Heart upper limits of normal in size without pericardial effusion. Three-vessel coronary artery calci fications are present. Mild atherosclerotic arch calcifications with conventional arch vessel branching anatomy. 1.3 cm right hilar lymph node measuring 1.1 cm on 05/01/2023. Bilateral axillary lymph nodes, some of which are prominent measuring up to 7 mm short axis appear un changed from 05/01/2023. One lymph node right axilla measuring 9 mm on the right, axial image 12 and 13 not clearly seen in 20 23. Attention on follow-up. Biapical pleural parenchymal scarring with mild to moderate emphysematous change. Chronic as small ri ght pleural effusion. Irregular focal opacity right lower lobe extending to the effusion shows an unc hanged appearance back to 2022 suggesting site of treated disease. No new or increasing nodularity is identified here. 5 mm right midlung pulmonary nodule is unchanged. 5 mm subpleural pulmonary nodule anterior right mid lung is unchanged. 5 mm inferior lingular pulmonary nodules unchanged. ABDOMEN: No focal liver lesion. Similar mild prominence to the bile duct up to 5 mm. There is no abnormal gall bladder distention. Stable 2 cm left adrenal nodule. Right adrenal gland, and pancreas show no gross abnormality. 1.9 cm diverticulum of the third portion of the duodenum projecting up into the pancreatic head region. 4 mm nonobstructive right renal stone. Extrarenal pelvis left kidney is unchanged. Numerous calcified granulomas of the spleen. Moderate atherosclerotic calcifications infrarenal abdominal aorta and common iliac arteries. No dilated small bowel, free fluid, or free air. Possibility of intra-abdominal fat limits assessment for abdominal adenopathy. No obvious adenopathy is seen. There is moderate stool burden. No pericolic inflammatory changes seen. Pelvis: Bladder partially distended. Pelvic phleboliths. No abnormal fluid collection in the pelvis or pelvic lymphadenopathy. Bones: Degenerative grade 1 anterolisthesis L4-L5. No osseous destructive process. IMPRESSION: 1. CHRONIC SMALL RIGHT PLEURAL EFFUSION WITH IRREGULAR RIGHT LOWER LOBE OPACITY, UNCHANGED BACK TO AT LEAST 2022 SUGGESTING SITE OF TREATED DISEASE. A few pulmonary nodules measuring 5 mm also remain un changed. 2. Possible new, prominent but nonenlarged 9 mm right axillary lymph node. This is nonspecific. Atten tion on follow-up. 3. A 1.3 cm right hilar lymph node at the site of metabolic activity on the PET/CT of 02/29/2024 measu red 1.1 cm back in 2022. This can continue to be followed. 4. A 2 cm left adrenal nodule remains unchanged. [facility], , 07/01/2024 12:58 PM
== END | disposition home or self-care (01) ==
LOC: RADCTMAIN 09:59
PROVIDERS: ATTEND Internal Medicine Hematology & Oncology
DX: Z03.89 Encounter for observation for other suspected diseases and conditions ruled out (principal); C34.31 Malignant neoplasm of lower lobe, right bronchus or lung; J90 Pleural effusion, not elsewhere classified; R91.8 Other nonspecific abnormal finding of lung field
CPT/HCPCS: 82565; 84520; 71260; 74177; 36415; Q9967

== ENCOUNTER → 2024-08-22 | Outpatient (CLI) | payer MEDICARE ==
--- NOTE | 2024-08-24 11:46 | PE ---
EXAMINATION TYPE: PET CT fusion skull to thigh DATE OF EXAM: 08/22/2024 CLINICAL INDICATION:Female, 74 years old with history of C34.31 LUNG CANCER; TECHNIQUE: Following the intravenous administration of 12.21 mCi of F-18 FDG, whole body images are performed from the skull base to the Mid thigh. Images are reviewed on the computer in the coronal, axial, and sagittal planes. Reconstructed rotating images are created on independent workstation an d reviewed on the computer. A non-contrast CT is performed in conjunction with the PET scan. Glucos e level 90 mg/dL CT DLP: 156.90 mGycm, Automated exposure control for dose reduction was used. COMPARISON: CT 07/01/2024, PET/CT 02/29/2024, MRI: None FINDINGS: Mediastinal SUV mean is 1.5. Hepatic parenchyma SUV mean is 1.8. SKULL BASE AND NECK: No suspicious radiotracer activity. CHEST, MEDIASTINUM, AND HILAR REGION: * Left chest wall focus of uptake L4-5 clock position left breast axis SUV 2.7 previously 3.8 * FDG avid right pulmonary hilum lymph node max SUV 6.5, previously 6.8, 3.9, 8.2. * Atelectasis/consolidation change in the right lung base there is an additional tiny focus of uptak e measuring Max SUV 3.1 previously 3.4, 2.0, 4.2. * Right low paratracheal lymph node max SUV 3.7, previously 3.1 2.5, 4.2. * Mild uptake in the subcarinal region max SUV 2.8, previously 2.3, 4.0. Uptake in the left axillary near the chest wall max SUV 2.4, previously 2.0, 2.8 measuring 8 mm in sh ort axis not significantly changed from 02/29/2024. * Right lower lung consolidation without abnormal uptake. * Trace right pleural effusion. * ABDOMEN AND PELVIS: * Left adrenal nodule low levels of uptake max SUV 2.3, previously 2.8, 2.1, 2.6. Measuring approxim ately 16 x 17 mm which is not significantly changed dating back to at least 09/01/2021. * Mild uptake zenon hepatis is not well visualized due. MUSCULOSKELETAL STRUCTURES: No suspicious radiotracer activity. OTHER CT: Atherosclerosis of the carotid bifurcations. Bilateral breast implants appear intact. Trace right pleural effusion. The heart is mildly enlarged for size. The coronary arteries demonstrate ath erosclerosis. Nonobstructing right renal calculus measuring up to 4 mm. IMPRESSION: 1. No significant change with metabolic activity of right pulmonary hilar lymph node slightly decrea sed on today's exam possibly due to technique. In the zenon hepatis focus of uptake, 2. Decrease in left chest wall focus of abnormal uptake just superficial to the chest wall at 4-5 o' clock in the left breast. 3. Left adrenal nodule with low levels FDG activity is stable. [facility], , 08/24/2024 11:44 AM
== END | disposition home or self-care (01) ==
LOC: RADPETMAIN 11:10
PROVIDERS: ATTEND Internal Medicine Hematology & Oncology
DX: C34.31 Malignant neoplasm of lower lobe, right bronchus or lung (principal); N20.0 Calculus of kidney; J90 Pleural effusion, not elsewhere classified; Z98.82 Breast implant status
CPT/HCPCS: 78815; A9552